=== PATIENT | female | born 1995 | race Caucasian/White ===

== ENCOUNTER 2021-06-06 05:52 | Inpatient (IN) | payer BC, SELFPAY ==
[2021-06-06] VITALS (100 sets, daily range): BP systolic 100–165; BP diastolic 52–149; PULSE 26–242; RESP 16–20; TEMP 36.2–36.7; O2SAT 80–100; BMI 31.1
--- NOTE | 2021-06-06 05:52 | LDADM ---
This patient, Mckenzie Stallings, was admitted to Labor/Delivery/Recovery 103 on 06/06/21 at 05:52. Plans for labor, pain management and were discussed with patient. Patient/family oriented to hospital policies and general routines including ID bracelet, bed and alarms, visiting hours, pain management, procedures, bathroom and other care routines, personal items, smoking policy, room service/diet and guest tray routines, infant security routines, and visiting hours. Patient/Family are encouraged to report perceived risks to care and to ask questions if they do not understand what they are told or what they should do. See OBIX for further documentation.
[2021-06-06 06:46] LABS: Basophils Percent Auto 0.2 % (0.2-1.2); Eosinophils Absolute Auto 0.1 K/mm3 (0-0.3); Eosinophils Percent Auto 0.7 % (0-4.4); Hematocrit 30.5 % (37.0-47.0); Hemoglobin 9.6 g/dL (12.0-15.0); Immature Granulocyte Absolute 0.05 K/mm3 (0.00-0.031); Immature Granulocyte Percent A 0.6 % (0-0.5); Lymphocytes Absolute Auto 2.44 K/mm3 (0.9-3.2); Lymphocytes Percent Auto 29.7 % (18.3-44.2); Mean Corpuscular HGB Conc 31.5 g/dl (32-36); Mean Corpuscular Hemoglobin 25.5 pg (26-34); Mean Corpuscular Volume 81.1 fl (80-100); Mean Platelet Volume 11.3 fl (7.4-10.4); Monocytes Absolute Auto 0.5 K/mm3 (0.1-0.6); Neutrophils Absolute Auto 5.2 K/mm3 (1.3-6.7); Neutrophils Percent Auto 62.8 % (45.5-73.1); Platelet Count Result 176 k/mm3 (150-375); Red Blood Count 3.76 M/mm3 (4.2-5.4); Red Cell Distribution Width 14.6 % (11.5-14.5); White Blood Count 8.2 K/mm3 (4.5-10.0)
[2021-06-06] MEDS: LACTATED RINGERS 1,000 ML 125 ML IV CONT ×2 (06:59→14:39)
[2021-06-06] MEDS: OXYTOCIN 30 UNITS/NS 500 ML 30 UNITS/500 ML BAG IV CONT (07:00)
--- NOTE | 2021-06-06 07:18 | WPDOBADMIT ---
Obstetrics - Admit Note Admission Note: record reviewed. No pertinent additions to the history and/or any subsequent changes in the physical findings that are not consistent with the expected course of the were found. IOL at 39 weeks, attempted arom stopped due to pt discomfort, anticipate vaginal delivery Additions to the history and/or subsequent changes in the physical findings follow. None.
--- NOTE | 2021-06-06 09:59 | P.PNAN_ITS ---
Anes - Eval Pre Procedure Procedure: labor pain management Date/Time: 06/06/21 09:59 Surgeon: Nils Preop Diagnosis: pain during labor Pre Op Diagnosis: Induction of Labor Patient Data Age: 26 Gender: F Height: 1.57 m Weight: 77.2 kg Last Vital Signs Temp 98.1 F 06/06/21 09:02 Pulse 78 06/06/21 09:01 Resp 18 06/06/21 09:02 BP 121/64 06/06/21 09:01 Allergies Allergy/AdvReac Type Severity Reaction Status Date / Time Penicillins Allergy Severe HIVES Verified 02/23/19 07:23 Home Medications Medication Instructions Recorded Confirmed Type PNV cmb#95-ferrous fumarate-FA 1 tablet PO DAILY 05/21/21 06/06/21 History [] pantoprazole [Protonix] 20 mg PO HS 05/21/21 06/06/21 History Laboratory Tests 06/06/21 06/06/21 06:33 06:33 WBC 8.2 K/mm3 K/mm3 (4.5-10.0) RBC 3.76 M/mm3 L M/mm3 (4.2-5.4) Hgb 9.6 g/dL L g/dL (12.0-15.0) Hct 30.5 % L % (37.0-47.0) MCV 81.1 fl fl (80-100) MCH 25.5 pg L pg (26-34) MCHC 31.5 g/dl L g/dl (32-36) RDW 14.6 % H % (11.5-14.5) Plt Count 176 k/mm3 k/mm3 (150-375) MPV 11.3 fl H fl (7.4-10.4) Immature Gran % (Auto) 0.6 % H % (0-0.5) Neut % (Auto) 62.8 % % (45.5-73.1) Lymph % (Auto) 29.7 % % (18.3-44.2) [place]go % (Auto) 6.0 % % (2.6-8.5) Eos % (Auto) 0.7 % % (0-4.4) Baso % (Auto) 0.2 % % (0.2-1.2) Lymph # (Auto) 2.44 K/mm3 K/mm3 (0.9-3.2) H[place]go # (Auto) 0.5 K/mm3 K/mm3 (0.1-0.6) Eos # (Auto) 0.1 K/mm3 K/mm3 (0-0.3) Baso # (Auto) 0.0 K/mm3 K/mm3 (0.0-0.1) Abs Immat Gran (auto) 0.05 K/mm3 H K/mm3 (0.00-0.031) Absolute Neuts (auto) 5.2 K/mm3 K/mm3 (1.3-6.7) Absolute Nucleated RBC 0.0 K/mm3 K/mm3 (0.0-0.012) Nucleated RBC % 0.0 % % (0.0-0.2) Blood Type A Positive Antibody Screen Negative : gestational age (edc 06/12/21) HCG: positive Patient hx anesthesia problems: none Family hx anesthesia problems: none Results Review: All pre-operative results and documents have been reviewed as part of the pre-operative evaluation. [facility] Past Medical History Medical History Pain during labor Family History Family History Other No pertinent family history Social History Social History Smoking status: Never smoker Substance use: never Spiritual care concerns: No Exam Day of Procedure 06/06/21 09:59
[2021-06-06] MEDS: fentaNYL CITRATE INJ (*CRX) 100 MCG/2 ML VIAL 50 MCG IV PUSH ×2 (12:26→14:01)
[2021-06-06] MEDS: ONDANSETRON INJ 4 MG/2 ML VIAL IV PUSH (16:52)
--- NOTE | 2021-06-06 18:15 | PM.OBPRVD ---
OB - Delivery Note Procedure Delivery date: 06/06/21 Procedure: vaginal delivery Intrapartal events: None Induction method: AROM and per pitocin protocol Delivery monitor: external FHT and external uterine Route of delivery: Episiotomy description: None Laceration Description: Perineal - 2nd Degree Delivery repair: vicryl Specimen: No Quantitative Blood Loss (ml): 450 Anesthesia type: Epidural Disposition: floor Baby Date of : 06/06/21 Time of : 17:56 Weeks of gestation at delivery: 39 Infant gender: Male Weight (pounds): 8 Weight (ounces): 7 presentation: vertex position: Right Occiput Anterior Placenta delivery description: Spontaneous cord vessel description: 3 Vessels, Nuchal Cord, Loose, Clamped/Cut and Delayed Cord Clamping score one minute: 9 score five minutes: 9 Narrative: mother and baby skin to skin in stable condition
[2021-06-06] MEDS: OXYTOCIN 30 UNITS/NS 500 ML 30 UNITS/500 ML BAG 125 UNITS IV CONT (18:25)
[2021-06-06] MEDS: IBUPROFEN 600 MG TABLET PO (20:39)
[2021-06-06] MEDS: WITCH HAZEL 40 PADS 1 PAD TOPICAL (20:40)
[2021-06-06] MEDS: BENZOCAINE 20% AER SPR (*SP) 56 GM CAN 1 SPRAY TOPICAL (20:40)
[2021-06-07] MEDS: ACETAMINOPHEN 325 MG TABLET 650 MG PO (00:34)
[2021-06-07 04:50] LABS: Hemoglobin 8.4 g/dL (12.0-15.0)
[2021-06-07 07:50] LABS: Rapid Plasma Reagin Non-Reactive (NonReactive)
--- NOTE | 2021-06-07 08:10 | PM.OBPNVD ---
OB - PN: Subj Subjective Date/time seen: 06/07/21 08:10 Patient comments: no complaints baby status: doing well OB - PN: Obj Data Labs CBC & Chem 7: 06/07/21 02:48 Labs: Laboratory Results - last 24 hr 06/07/21 06/07/21 02:48 02:48 Hgb 8.4 L Hct 27.0 L RPR Non-reactive OB - PN A/P Plan day: 1 Plan: routine care Time Spent With Patient Time: Total time spent is greater than 50% in coordination of care (as documented) at patient's floor/unit and/or counseling patient: Time with patient: less than 15 minutes Review of Systems Review of Systems: All systems reviewed & are unremarkable except as noted in HPI and below Exam Narrative: Fundus firm and vaginal flow controlled. No lower ext redness, warmth, or edema. Negative homans. Const: General: comfortable Chest: Breast/axilla inspection: normal inspection of the breasts Resp: Effort & Inspection: normal respiratory effort Cardio: Rate: regular rate GI: GI Palp: Yes Soft to palpation Psych: Appearance: grossly normal Affect: normal affect Attitude: cooperative Thought content: Yes Normal thought content present Judgement: Good judgement present (Psych)
[2021-06-07 08:30] VITALS: BP 102/64; PULSE 107; RESP 16; TEMP 36.5; O2SAT 99
[2021-06-07] MEDS: IBUPROFEN 600 MG TABLET PO ×2 (08:35→17:11)
[2021-06-07] MEDS: POLYSACCHARIDE IRON COMPLEX 150 MG CAPSULE PO ×2 (08:35→17:11)
[2021-06-07] MEDS: MULTIVIT/MIN/PREN/FOL AC/IRON TABLET 1 TAB PO (08:35)
[2021-06-07] MEDS: DOCUSATE SODIUM 100 MG CAPSULE PO ×2 (08:35→17:11)
--- NOTE | 2021-06-07 09:52 | WPDANLDPN2 ---
Anes-Prog Note L&D Date/Time: 06/07/21 09:52 Comfortable throughout: labor and delivery Neuraxial method: epidural Epidural/Spinal procedure site: clean & non-tender Neuro status: Neuro function grossly intact. Cardiovascular status: normal Respiratory status: normal Airway patency: baseline Mental status: baseline Post-Op hydration status: normal Vital Signs: Last Vital Signs Temp 36.4 C 06/06/21 22:25 Pulse 118 H 06/06/21 22:25 Resp 16 06/06/21 22:25 BP 117/70 06/06/21 22:25 Pulse Ox 98 06/06/21 18:00 Pain score (VAS): 0 I/O: Intake & Output 06/06/21 06/07/21 06/07/21 23:59 07:59 15:59 Intake Total 1500 Output Total 95 Balance 1405 Post-procedural complaints: none Patient feedback: Patient satisfied with anesthetic care.
[2021-06-07 11:56] VITALS: BP 109/57; PULSE 102; RESP 16; TEMP 36.8; O2SAT 98
[2021-06-07 17:00] VITALS: BP 118/72; PULSE 102; RESP 16; TEMP 36.4; O2SAT 100; O2SAT 98
[2021-06-07 18:40] VITALS: BP 114/69; PULSE 100; RESP 16; TEMP 36.8
[2021-06-08] MEDS: ACETAMINOPHEN 325 MG TABLET 650 MG PO (00:55)
[2021-06-08 07:30] VITALS: BP 128/76; PULSE 108; RESP 16; TEMP 37; O2SAT 99
--- NOTE | 2021-06-08 07:43 | PM.OBPNVD ---
OB - PN: Subj Subjective Date/time seen: 06/08/21 07:43 Patient comments: no complaints baby status: doing well OB - PN: Obj Data Labs CBC & Chem 7: 06/07/21 02:48 Labs: Laboratory Results - last 24 hr 06/07/21 02:48 RPR Non-reactive OB - PN A/P Plan day: 2 Plan: routine care and discharge home Time Spent With Patient Time: Total time spent is greater than 50% in coordination of care (as documented) at patient's floor/unit and/or counseling patient: Review of Systems Review of Systems: All systems reviewed & are unremarkable except as noted in HPI and below Exam Const: General: cooperative
--- NOTE | 2021-06-08 07:45 | PM.OBDSVD ---
DS: Admitting Diagnosis Discharge Date 06/08/2021 Admitting Diagnosis MIL OB - DS: Summary OB Procedures : None OB Procedures Intrapartum: Spontaneous Vag Delivery OB Procedures: : None Time Spent with Patient Time attestation: Total time spent providing and/or coordinating discharge services: DS: Data Data Completed and Pending Labs on day of discharge: Labs from last 24 hours 06/07/21 02:48 RPR Non-reactive Discharge Plan Discharge Attending physician on discharge: Maryan Wray Discharging Clinician: Torri Turner Patient Disposition: Home, Self-Care Activity: pelvic rest Diet: regular Patient Instructions: Antibiotic Form Stand Alone Forms: General Discharge Information Follow-up/Referrals: Torri Turner, CNM [Certified Nurse Sterilizer Operator] - 4 Weeks Discharge Medications: Continued PNV cmb#95-ferrous fumarate-FA [] 28 mg iron- 800 mcg Tablet 1 tablet PO DAILY RF: 0 Discontinued pantoprazole [Protonix] 20 mg Tablet,Delayed Release (Dr/Ec) 20 mg PO HS RF: 0 Date of admission: 06/06/21 05:52 Primary Care Provider: Eric,[place] Admitting Provider: Maryan Wray Attending physician on admission: Maryan Wray Condition: Stable
[2021-06-08] MEDS: DOCUSATE SODIUM 100 MG CAPSULE PO (09:59)
[2021-06-08] MEDS: MULTIVIT/MIN/PREN/FOL AC/IRON TABLET 1 TAB PO (09:59)
[2021-06-08] MEDS: BENZOCAINE 20% AER SPR (*SP) 56 GM CAN 1 SPRAY TOPICAL (09:59)
[2021-06-08] MEDS: WITCH HAZEL 40 PADS 1 PAD TOPICAL (09:59)
[2021-06-08] MEDS: IBUPROFEN 600 MG TABLET PO (09:59)
[2021-06-08] MEDS: POLYSACCHARIDE IRON COMPLEX 150 MG CAPSULE PO (09:59)
[2021-06-08 10:00] VITALS: PULSE 108; RESP 16; O2SAT 99
--- NOTE | 2021-06-08 10:38 | PC.NURSE ---
Mother verbalizes she is able to independently latch with appropriate positioning/alignment. She states she has nipple discomfort, is feeding as required and waking infant to feed if needed. Discussed making sure infant has deep latch and what that looks like and mother given lanolin. Encouraged mom to leave breast open to air when able. Mom denies and cracks, blisters or bleeding on nipples. has had 9 effective feedings in the past 24 hours, and is currently meeting outcomes for weight, output, jaundice and feeding frequencies. Mother states she feels confident to continue effective at home. Reviewed transition to breast milk, signs of adequate intake, and engorgement/relief. Mom states she was able to pump one ounce of milk for while was getting circumcision. Instructed to call ICP if intake/output less than required. Reviewed community resources on the [facility] website and in the Mom/Baby guide. Information on outpatient services provided. Mother has no further questions at this time. Encouraged mom to call with next feeding to have it assessed.
[2021-06-09 11:25] VITALS: BP 119/73; PULSE 96; RESP 20; TEMP 36.6; O2SAT 100
== END 2021-06-08 11:55 | disposition home or self-care (01) | DRG 807 ==
LOC: ANHLDR 05:56 → ANHOB2 21:55
PROVIDERS: Advanced Practice Midwife; Admitting Provider Obstetrics & Gynecology; PCP Surgery; Visit Provider Obstetrics & Gynecology
DX: O76 Abnormality in fetal heart rate and rhythm complicating labor and delivery (principal); Z37.0 Single live birth; O69.81X0 Labor and delivery complicated by cord around neck, without compression, not applicable or unspecified; O70.1 Second degree perineal laceration during delivery; Z3A.39 39 weeks gestation of pregnancy
CPT/HCPCS: 36415; 85014; 85018; 85025; 86592; 86850; 86900; 86901; A9270; J2405; J2590; J3010; J7120

== ENCOUNTER 2022-11-29 14:57 | Outpatient (CLI) | payer OTHER, SELFPAY ==
[2022-11-29 15:45] VITALS: BP 126/78; PULSE 96
[2022-11-29 16:00] VITALS: BP 125/67; PULSE 88
[2022-11-29 16:08] LABS: Appearance Urine Cloudy (Clear); Bacteria Urine 2+ /hpf; Basophils Percent Auto 0.2 % (0.2-1.2); Bilirubin Urine Negative (Negative); Blood Urine Negative (Negative); Color Urine Yellow (Yellow); Eosinophils Absolute Auto 0.1 K/mm3 (0-0.3); Eosinophils Percent Auto 1.1 % (0-4.4); Glucose Urine UA Negative (Negative); Hematocrit 34.9 % (37.0-47.0); Hemoglobin 10.9 g/dL (12.0-15.0); Immature Granulocyte Absolute 0.05 K/mm3 (0.00-0.031); Immature Granulocyte Percent A 0.6 % (0-0.5); Ketones Urine Trace mg/dL (Negative); Leukocyte Esterase Ur 3+ LEU/UL (NEGATIVE); Lymphocytes Absolute Auto 1.99 K/mm3 (0.9-3.2); Lymphocytes Percent Auto 23.4 % (18.3-44.2); Mean Corpuscular HGB Conc 31.2 g/dl (32-36); Mean Corpuscular Hemoglobin 26.6 pg (26-34); Mean Corpuscular Volume 85.1 fl (80-100); Mean Platelet Volume 11.7 fl (7.4-10.4); Monocytes Absolute Auto 0.6 K/mm3 (0.1-0.6); Monocytes Percent Auto 7.2 % (2.6-8.5); Neutrophils Absolute Auto 5.8 K/mm3 (1.3-6.7); Neutrophils Percent Auto 67.5 % (45.5-73.1); Nitrate Urine Negative (Negative); Non Pathogenic Casts 0-2; Platelet Count Result 158 k/mm3 (150-375); Protein Urine Trace mg/dL (Negative); RBC Urine 0-2 /hpf (0-2); Red Cell Distribution Width 16.7 % (11.5-14.5); Specific Grav Ur 1.022 (1.001-1.035); Squamous Epithelial Cell Urine Many /hpf (Few); Urobilinogen Urine 0.2 mg/dL (<2.0); WBC Urine 51-100 /hpf (0-3); White Blood Count 8.5 K/mm3 (4.5-10.0); pH Urine 6.5 (5.0-9.0)
[2022-11-29 16:15] VITALS: BP 130/79; PULSE 97
[2022-11-29 16:17] LABS: Alanine Aminotransferase 12 U/L (6-35); Albumin Level 3.4 g/dL (3.5-5.1); Alkaline Phosphatase 80 U/L (38-126); Anion Gap 5 mmol/L (8-16); Aspartate Amino Transferase 20 U/L (14-36); Bilirubin,Total 0.4 mg/dL (0.2-1.3); Blood Urea Nitrogen 6 mg/dL (7-17); Calcium 8.3 mg/dL (8.4-10.2); Carbon Dioxide 21 mmol/L (22-30); Chloride 109 mmol/L (98-107); Creatinine Urine 136.8 mg/dL; Estimated Glomerular Filt Rate > 60; Glucose 92 mg/dL (65-110); Potassium 3.9 mmol/L (3.4-5.0); Sodium 135 mmol/L (137-145); Total Protein Urine Random 6 mg/dL; Ur Ttl Prot Creatinine Ratio 0.04 mg/mg (0-0.20); Uric Acid 4.2 mg/dL (2.5-7.5)
[2022-11-29 16:20] LABS: Add Urine Microscopic? YES
== END 2022-11-29 16:43 | disposition home or self-care (01) ==
LOC: ANHOBOP 15:04 → ANHOBPP 15:07
PROVIDERS: Advanced Practice Midwife; PCP Family Medicine; Visit Provider Obstetrics & Gynecology
DX: O13.9 Gestational [pregnancy-induced] hypertension without significant proteinuria, unspecified trimester (principal); Z3A.00 Weeks of gestation of pregnancy not specified
CPT/HCPCS: 36415; 59025; 80053; 81001; 82570; 84156; 84550; 85025; 87086; 99199

== ENCOUNTER 2022-12-11 12:30 | Inpatient (IN) | payer OTHER, SELFPAY ==
[2022-12-11] VITALS (87 sets, daily range): BP systolic 89–150; BP diastolic 52–97; PULSE 85–143; TEMP 36.6; O2SAT 95–100; BMI 36.5
--- NOTE | 2022-12-11 12:54 | P.PNAN_ITS ---
Anes - Eval Pre Procedure Procedure: labor epidural Date/Time: 12/11/22 12:54 Preop Diagnosis: labor pain Pre Op Diagnosis: IOL Patient Data Age: 27 Gender: F Height: Weight: Allergies Allergy/AdvReac Type Severity Reaction Status Date / Time Penicillins Allergy Severe HIVES Verified 11/29/22 15:25 Home Medications Medication Instructions Recorded Confirmed Type vit no.95-ferrous 1 tablet PO DAILY 05/21/21 06/06/21 History fumarate 28 mg-folic acid 800 mcg tablet () ferrous sulfate 325 mg (65 mg 325 mg PO DAILY 11/29/22 11/29/22 History iron) tablet Patient hx anesthesia problems: none Family hx anesthesia problems: none Results Review: All pre-operative results and documents have been reviewed as part of the pre- operative evaluation. [facility] Past Medical History Medical History Pain during labor Family History Family History Mother Family history of malignant neoplasm of breast in first degree relative Other No pertinent family history Social History Social History Smoking status: Never smoker Second hand tobacco smoke exposure: No Alcohol intake: never Substance use: never Substance use type: does not use Living arrangements: with family Occupation/Education: occupation Gender identity (if verbalized by the patient): Female Spiritual care concerns: No Exam Day of Procedure 12/11/22 12:54 Patient weight: normal Heart: regular rate and rhythm Lungs: clear to auscultation and normal air movement Airway: Mallampati scale Neurological: alert and oriented
[2022-12-11 13:48] LABS: Basophils Percent Auto 0.2 % (0.2-1.2); Eosinophils Absolute Auto 0.1 K/mm3 (0-0.3); Eosinophils Percent Auto 0.6 % (0-4.4); Hematocrit 37.5 % (37.0-47.0); Hemoglobin 11.7 g/dL (12.0-15.0); Immature Granulocyte Absolute 0.05 K/mm3 (0.00-0.031); Immature Granulocyte Percent A 0.6 % (0-0.5); Lymphocytes Absolute Auto 1.57 K/mm3 (0.9-3.2); Mean Corpuscular HGB Conc 31.2 g/dl (32-36); Mean Corpuscular Hemoglobin 26.7 pg (26-34); Mean Corpuscular Volume 85.4 fl (80-100); Mean Platelet Volume 11.7 fl (7.4-10.4); Monocytes Absolute Auto 0.5 K/mm3 (0.1-0.6); Monocytes Percent Auto 6.5 % (2.6-8.5); Neutrophils Absolute Auto 6.1 K/mm3 (1.3-6.7); Neutrophils Percent Auto 73.1 % (45.5-73.1); Platelet Count Result 155 k/mm3 (150-375); Red Blood Count 4.39 M/mm3 (4.2-5.4); White Blood Count 8.3 K/mm3 (4.5-10.0)
[2022-12-11 13:58] LABS: Alanine Aminotransferase 16 U/L (6-35); Albumin Level 3.6 g/dL (3.5-5.1); Alkaline Phosphatase 101 U/L (38-126); Anion Gap 8 mmol/L (8-16); Aspartate Amino Transferase 21 U/L (14-36); Bilirubin,Total 0.4 mg/dL (0.2-1.3); Blood Urea Nitrogen 5 mg/dL (7-17); Calcium 8.9 mg/dL (8.4-10.2); Carbon Dioxide 21 mmol/L (22-30); Chloride 107 mmol/L (98-107); Estimated Glomerular Filt Rate > 60; Glucose 90 mg/dL (65-110); Potassium 3.9 mmol/L (3.4-5.0); Sodium 136 mmol/L (137-145); Uric Acid 4.6 mg/dL (2.5-7.5)
[2022-12-11 14:14] LABS: Creatinine Urine 46.4 mg/dL; Total Protein Urine Random 13 mg/dL; Ur Ttl Prot Creatinine Ratio 0.28 mg/mg (0-0.20)
[2022-12-11] MEDS: miSOPROStol 25 MCG TABLET PO (14:38)
--- NOTE | 2022-12-11 15:48 | LDADM ---
This patient, Mckenzie Stallings, was admitted to Labor/Delivery/Recovery 107 on 12/11/22 at 12:30. Plans for labor, pain management and were discussed with patient. Patient/family oriented to hospital policies and general routines including ID bracelet, bed and alarms, visiting hours, pain management, procedures, bathroom and other care routines, personal items, smoking policy, room service/diet and guest tray routines, infant security routines, and visiting hours. Patient/Family are encouraged to report perceived risks to care and to ask questions if they do not understand what they are told or what they should do. See OBIX for further documentation.
--- NOTE | 2022-12-11 17:32 | WPDOBADMIT ---
Obstetrics - Admit Note Admission Note: record reviewed. No pertinent additions to the history and/or any subsequent changes in the physical findings that are not consistent with the expected course of the were found. IOL, GHTN, diagnosed by office bp on separate occasions, 2+ bilateral edema, denies miller, visual changes, plan of care reviewed with dr. david. SVE /-2 soft, AROM large amount of clear odorless fluid, anticipate vaginal delivery Additions to the history and/or subsequent changes in the physical findings follow. None.
[2022-12-11] MEDS: OXYTOCIN 30 UNITS/NS 500 ML 30 UNITS/500 ML BAG IV CONT (19:06)
[2022-12-11] MEDS: LACTATED RINGERS 1,000 ML 125 ML IV CONT ×2 (19:06→21:55)
--- NOTE | 2022-12-11 22:15 | WPDANESEPN ---
Anes - Epidural Procedure Note Date/Time: 12/11/22 22:15 Consent: I have discussed with the patient/family/POA, the placement of an epidural catheter and the use of epidural narcotic/local anesthetic for labor analgesia and/or postoperative pain management, including associated potential risks, benefits, complications and side effects. I have discussed alternative methods of labor analgesia and/or postoperative pain management. The patient/family/POA, understand(s) and wish(es) to proceed with epidural narcotic/local anesthetic for labor analgesia and/or postoperative pain management. Time-Out: A pre-procedural Time-Out was completed immediately before starting the procedure and confirmed: Patient Identification, Site, Procedure, Patient Position and the Availability of Requisite Equipment. Clinical Indications: Labor Pain Epidural Insertion Note Patient position: sitting Skin prep: chlorhexidine and sterile drape Needle: 18g Tuohy-Schliff Catheter: 20g Unstyleted Technique: Loss of resistance. Level of insertion: L3/4 Catheter skin frank (cm): 6 Length in epidural space (cm): 11 Skin anesthesia: lidocaine 1% Test dose: 1.5% Lidocaine with 1:[id number] Epi, negative for subarachnoid Inj and negative for intravascular Inj Time of test dose: 21:58 Observations: tolerated well Complications: none
[2022-12-12] VITALS (60 sets, daily range): BP systolic 97–164; BP diastolic 49–138; PULSE 94–144; RESP 16–18; TEMP 36.6–37.6; O2SAT 97–100
[2022-12-12] MEDS: SODIUM CHLORIDE 0.9% IV 300 ML 600 ML I-UTERINE (00:22)
--- NOTE | 2022-12-12 03:11 | P.PCNOB_ITS ---
OB - Delivery Note Procedure Delivery date: 12/12/22 Procedure: Events: Gestational Hypertension Induction method: Per Misoprostol Protocol and Per Pitocin Protocol Delivery monitor: External FHT and Internal FHT Route of delivery: Episiotomy description: None Laceration Description: None Delivery repair: vicryl Specimen: No Quantitative Blood Loss (ml): 100 Anesthesia type: Epidural [place] Baby Date of : 12/12/22 Time of : 02:52 Weeks of gestation at delivery: 37 Infant gender: Male presentation: vertex position: Other (occiput posterior) Placenta delivery description: Spontaneous Cord Vessel Description: 3 Vessels score one minute: 8 score five minutes: 9 Narrative: mother and baby skin to skin in stable condition
[2022-12-12] MEDS: OXYTOCIN 30 UNITS/NS 500 ML 30 UNITS/500 ML BAG 125 UNITS IV CONT (03:25)
[2022-12-12] MEDS: WITCH HAZEL 40 PADS 1 PAD TOPICAL (06:55)
--- NOTE | 2022-12-12 11:56 | OBPPTRN ---
0712-Patient transferred to post room #288 via wheelchair. Support person present. Oriented to unit, room, information board, rooming in, admission packet and security measures. Patient verbalizes understanding.
[2022-12-12] MEDS: DOCUSATE SODIUM 100 MG CAPSULE PO (12:15)
[2022-12-12] MEDS: MULTIVIT/MIN/PREN/FOL AC/IRON TABLET 1 TAB PO (12:15)
[2022-12-12] MEDS: IBUPROFEN 600 MG TABLET PO (14:53)
[2022-12-12 15:09] LABS: Rapid Plasma Reagin Non-Reactive (NonReactive)
--- NOTE | 2022-12-12 16:59 | PC.NURSE ---
[id number] Introductions were made, then consulted with patient to assess needs related to . Mother led the conversation with her?plans to feed?her infant and the?experience so far. Mother works well with her with encouragement and education. Encouraged understanding of the benefits of skin to skin (demonstrating unwrapping and placing upright on her chest), stimulating with massage touch, changing positions to encourage wakefulness, how to watch for early feeding cues, responsive feeding, feeding on demand (aiming for 8-12 times in 24 hours, about every 2-3 hours), milk production, building/maintaining a milk supply, duration of feeding, signs of adequate intake/output and how to record on the feeding sheet. Reviewed positioning and ear, shoulder, hip alignment, supporting the breast to facilitate a deep latch, asymmetrical latch (off-center), leading with the chin with a big, open, wide gape and body close to mother. Infant is sleepy and reluctant with no latching. Mother practiced the skill of hand expression and 8mls of expressed breast milk was spoon fed to the infant allowing the infants tongue to lap it out of the spoon. Reviewed good handwashing when or touching the breast/nipples to prevent infection. Resources used to facilitate learning were used with the tool, mom and baby guide. Mother voiced understanding of skin to skin, stimulating with massage touch, responsive feedings, hand expressed colostrum, talking to to encourage if it has been 2 -2.5 hours since the start of the last , to call if does not latch, or if there is discomfort with . Resources provided for inpatient/outpatient with business card, feeding sheet and the mom/baby guide. Parents voiced understanding of information, demonstrated learning and will call if there is a request for assistance. Reported to the primary RN.
[2022-12-13] MEDS: IBUPROFEN 600 MG TABLET PO (00:13)
[2022-12-13 05:38] LABS: Hematocrit 32.4 % (37.0-47.0); Hemoglobin 10.2 g/dL (12.0-15.0)
--- NOTE | 2022-12-13 07:16 | WPDANLDPN2 ---
Anes-Prog Note L&D Date/Time: 12/13/22 07:16 Comfortable throughout: labor and delivery Neuraxial method: epidural Epidural/Spinal procedure site: clean & non-tender Neuro status: Neuro function grossly intact. Cardiovascular status: normal Respiratory status: normal Airway patency: baseline Mental status: baseline Post-Op hydration status: normal Vital Signs: Last Vital Signs Temp 36.6 C 12/12/22 20:35 Pulse 103 H 12/12/22 20:35 Resp 16 12/12/22 20:35 BP 129/77 12/12/22 20:35 Pulse Ox 99 12/12/22 16:00 O2 Del Method Room Air 12/12/22 13:00 Pain score (VAS): 1 I/O: Intake & Output 12/12/22 12/12/22 12/13/22 15:59 23:59 07:59 Intake Total 500 500 Balance 500 500 Patient feedback: Patient satisfied with anesthetic care.
[2022-12-13 08:00] VITALS: PULSE 93; RESP 16; O2SAT 100
[2022-12-13 08:40] VITALS: BP 127/87; PULSE 93; RESP 16; TEMP 36.6; O2SAT 100
--- NOTE | 2022-12-13 09:03 | PM.OBPNVD ---
OB - PN: Subj Subjective Date/time seen: 12/13/22 09:03 s/p vaginal delivery day 1, doing well, no complaints OB - PN: Obj Data Labs 12/13/22 05:15 12/11/22 13:33 Labs: Laboratory Results - last 24 hr 12/11/22 12/13/22 13:33 05:15 Hgb 10.2 L Hct 32.4 L RPR Non-reactive OB - PN A/P Plan day: 1 Plan: routine care and discharge home Time Spent With Patient Time: Total time spent is greater than 50% in coordination of care (as documented) at patient's floor/unit and/or counseling patient: Review of Systems Review of Systems: All systems reviewed & are unremarkable except as noted in HPI and below Exam Const: General: cooperative and healthy appearing Chest: Chest palpation & inspection: normal inspection of the chest Skin: General skin exam: normal color Extrem: General: normal to inspection Psych: Appearance: grossly normal
[2022-12-13] MEDS: DOCUSATE SODIUM 100 MG CAPSULE PO (09:13)
[2022-12-13] MEDS: MULTIVIT/MIN/PREN/FOL AC/IRON TABLET 1 TAB PO (09:13)
--- NOTE | 2022-12-13 09:23 | PM.OBDSVD ---
DS: Admitting Diagnosis Discharge Date 12/13/22 Admitting Diagnosis IOL, ghtn DS: Discharge Diagnosis Discharge Diagnosis (1) Vaginal delivery: Code(s): O80 - Encounter for full-term uncomplicated delivery Status: Acute OB - DS: Summary OB Procedures : None OB Procedures Intrapartum: Spontaneous Vag Delivery OB Procedures: : None Time Spent with Patient Time attestation: Total time spent providing and/or coordinating discharge services: DS: Data Data Completed and Pending Labs on day of discharge: Labs from last 24 hours 12/13/22 12/11/22 05:15 13:33 Hgb 10.2 L Hct 32.4 L RPR Non-reactive Discharge Plan Discharge Attending physician on discharge: Maryan Wray Discharging Clinician: Torri Turner Patient Disposition: Home, Self-Care Activity: pelvic rest Diet: regular Patient Instructions: Antibiotic Form Stand Alone Forms: General Discharge Information Follow-up/Referrals: Torri Turner, CNM [Certified Nurse Senior Construction Project Manager] - 4 Weeks Discharge Medications: New ibuprofen 600 mg Tablet 600 mg PO Q6H PRN (Reason: Cramping) Qty: 30 0RF Continued PNV cmb#95-ferrous fumarate-FA [] 28 mg iron- 800 mcg Tablet 1 tablet PO DAILY ferrous sulfate 325 mg (65 mg iron) Tablet 325 mg PO DAILY docusate sodium [Colace] 100 mg Capsule 100 mg PO DAILY Discontinued lansoprazole [Prevacid] 15 mg Capsule,Delayed Release(Dr/Ec) 15 mg PO DAILY Date of admission: 12/11/22 12:30 Primary Care Provider: Finesse Reyes Admitting Provider: Maryan Wray Attending physician on admission: Maryan Wray Condition: Stable
--- NOTE | 2022-12-13 10:09 | PC.NURSE ---
Patient was given the opportunity to view the discharge video Mother & Baby Care, The First Two Weeks and to ask questions. Patient declined viewing the video and has been given the mother/baby guide for home reference.
[2022-12-14 07:45] VITALS: BP 126/79; PULSE 98; RESP 20; TEMP 36.8; O2SAT 100
== END 2022-12-13 11:45 | disposition home or self-care (01) | DRG 807 ==
LOC: ANHLDR 12:34 → ANHOB2 12-12 07:22
PROVIDERS: Advanced Practice Midwife; Admitting Provider Obstetrics & Gynecology; PCP Family Medicine; Visit Provider Obstetrics & Gynecology
DX: O13.4 Gestational [pregnancy-induced] hypertension without significant proteinuria, complicating childbirth (principal); Z37.0 Single live birth; Z3A.37 37 weeks gestation of pregnancy; O70.0 First degree perineal laceration during delivery
CPT/HCPCS: 36415; 80053; 82570; 84156; 84550; 85014; 85018; 85025; 86592; 86850; 86900; 86901; A9270; J2590; J2795; J7030; J7120

== ENCOUNTER 2025-02-04 20:57 | Observation (INO) | payer OTHER, SELFPAY ==
[2025-02-04] VITALS (7 sets, daily range): BP systolic 102–114; BP diastolic 59–72; PULSE 104–117; TEMP 37.2; BMI 31.8
--- OUTSIDE RECORDS SUMMARY | 2025-02-04 21:05 | XMS_ITS | Clinical Summary ---
Author Organization [facility] Care Team Providers Care Control Clerk Name Role Phone Unavailable Primary Care Provider Unavailabl e Social History Tobacco Use Types Packs/Day Years Used Date Smoking Tobacco: Never Assessed Comments Unknown Sex and Gender Information Value Date Recorded Sex Assigned at Not on file Legal Sex Female 12:25 PM [employer]RI[employer] Gender Identity Not on file Sexual Orientation Not on file Plan of Treatment Health Maintenance Due Date Last Done Comments Hepatitis C Virus (HCV) Screening 1995 TdaP Immunization 1995 Hepatitis B Immunization (1 of 3 - 19+ 3-dose series) 2014 Pap Smear 2016 Influenza Immunization (#1) 2024 SARS-COV-2 Immunization ( season) 2024 Respiratory Syncytial Virus (RSV) Immunization (Adult) (1 - 1-dose 75+ series) 2070 Meningococcal Immunization (ACWY) Aged Out No longer eligible based on patient's age to complete this topic Pneumococcal Immunization Combined Aged Out No longer eligible based on patient's age to complete this topic Rotavirus Immunization Aged Out No lo nger eligible based on patient's age to complete this topic
--- OUTSIDE RECORDS SUMMARY | 2025-02-04 21:05 | XMS_ITS | Data Portability ---
Author Organization [facility] Address [address] [place] [address] [place] [address] Care Team Providers Care Saw Runner Name Role Phone JIN SHAY Primary Care Provider Assessment Encounter Date Assessment Date Assessment LastModified by Organization Details LastModified Time 12/29/2024 12/29/2024 Patient is __24_weeks . Discussed plan. [email or web address] Not available 12/29/2024 18:22:37 01/26/2025 01/26/2025 Patient is _28__weeks . Discussed plan. [email or web address] Not available 01/28/2025 09:32:17 Plan of Treatment Reminders Order Date Submit Date Provider Last Modified By Organization Details Last Modified Time Details Appointments U/S OB > 14 WKS 2024 04:00P M ULTRASOUND Not available Not available Not available OB ROUTINE 2024 04:30P M Torri Turner CNM Not available Not available Not available Lab None recorde d. Referral None recorde d. Procedures None recorde d. Surgeries None recorde d. Imaging US, obstetr ic, follow- up 2024 025 [email or web address], [address], [place], [address], 01/27/2025 18:29:56 US, obstetr ic, follow- up 2024 025 [email or web address], [address], [place], [address], 12/30/2024 10:19:18 US, obstetr ic, 2nd or 3rd trimest er 2024 025 [email or web address], [address], [address], [place], [address], 12/02/2024 13:12:32 Medication Orders Protoni x 40 mg tablet, delayed release [address] [id number], [address] [place], [place], [id number], 12/29/2024 18:23:11 Patient TargetsNo targets recorded. Patient InstructionsNo instructions recorded. Reason for Referral None Reported. Results Created Date Observation Date Name Description Value Unit Range Abnormal Flag Note LastModifiedBy Organization Detail LastModifiedTime 01/27/20 25 01/26/2025 HEMAT OCRIT (HCT) HCT 32.5 % (based on docume nted legal sex) 34.0-[address] [facility] (Lab) [address], [place], [address], 01/27/2025 10:47:28 01/27/20 25 01/26/2025 HEMOG LOBIN (HGB) HGB 9.9 g/dL (based on docume nted legal sex) 11.6-[address] [facility] (Lab) [address] [place], [address], 01/27/2025 10:47:29 01/27/20 25 01/26/2025 GTT - GESTA LUIS CARLOS L PEBBLES N, ACOG OB glucose, 1 hour screen 107 mg/dL 70-135 Not Available [facility] (Lab) [address] [place], [address], 01/27/2025 10:47:29 01/27/20 25 01/26/2025 HIV 1/2 ANTIG EN/AN TIBOD Y, REFLE X CONFI RMATI ON HIV antigen/anti body Nonrea ctive nonrea ctive HIV-1 antig en and HIV-1 /HIV- 2 antib odies were not detec miguel. No labor atory evide nce of HIV infec tion. Not Available [facility] (Lab) [address], [place], [address], 01/27/2025 10:47:30 01/27/20 25 01/26/2025 RPR SCREE N, REFLE X TITER /CONF IRMAT ION RPR qualitative Nonrea ctive nonrea ctive Not Available [facility] (Lab) [address], [place], [address], 01/27/2025 10:47:30 12/02/19 25 12/01/2024 US, obste tric, follo w-up No observ ation record ed. [email or web address], [place], [address], 12/02/2024 17:35:15 12/02/19 25 12/02/2024 US, obste tric, 2nd or 3rd trime ster No observ ation record ed. [email or web address] [address], [place], [address], 12/02/2024 12:14:48 12/30/19 25 12/29/2024 US, obste tric, follo w-up No observ ation record ed. [email or web address] [address], [place], [address], 12/29/2024 17:53:30 12/30/19 25 12/29/2024 US, obste tric, follo w-up No observ ation record ed. [email or web address], [place], [address], 12/30/2024 14:42:14 01/27/20 25 01/27/2025 US, obste tric, follo w-up No observ ation record ed. [email or web address] [address], [place], [address], 01/27/2025 11:31:32 01/27/20 25 01/26/2025 US, obste tric, follo w-up No observ ation record ed. [email or web address] [address], [place], [address], 02/01/2025 23:11:53 Result Notes None recorded. Problems Name Problem SNOMED Code Status Onset Date Resolution Date Notes Provider Name and Address Organization Details Recorded Time Miscarri age without complica tion 16965706 Completed 201809/27/2020 Incomple te spontane ous without complica tion;Pra ctice ID: 0001 Kat Gómez [facility] 11:06:45 Gestatio n less than 9 weeks [id number] Completed 201809/27/2020 Less than 8 weeks gestatio n of pregnanc y;Practi ce ID: 0001 [facility] 11:06:15 Missed miscarri age [id number] Completed 201809/27/2020 Missed ;Practic e ID: 0001 [facility], [facility] 11:06:47 Pregnanc y test negative 477051052 Completed 201809/27/2020 Encounte r for pregnanc y test, result negative ;Practic e ID: 0001 [facility], [facility] 11:06:55 Finding of regulari ty of menstrua l cycle Completed 201809/27/2020 Irregula r menstrua tion, unspecif ied;Prac mariluz ID: 0001 [facility], [facility] 11:06:11 Primigra adan [id number] Completed 201209/27/2020 Supervis ion of normal first pregnanc y;Record ed Elsewher e: No Locat ion: Becky dewey [facility] S ource: [facility] kaylah: N Practi ce ID: 0001 Waldo lable Time: 11:30:00 AM Kat Gómez basilia, [facility] 1 11:07:04 Postpart um care Completed 201209/27/2020 Post Followup ;Recorde d Elsewher e: No Locat ion: [facility] S ource: [facility] kaylah: N Practi ce ID: 0001 Waldo lable Time: 10:30:00 AM [facility] 1 11:06:50 Cyst of ovary [id number] Completed 201312/28/2020 Other and unspecif ied ovarian cyst;Rec orded Elsewher e: No Locat ion: [facility] S ource: [facility] kaylah: N Javiti ce ID: 0001 Waldo lable Time: 10:51:48 AM [facility] 12:51:45 Screenin g for malignan t neoplasm of cervix Completed 201309/27/2020 Screenin g for malignan t neoplasm s of the cervix;R ecorded Elsewher e: No [facility]at [facility] kaylah: N Javiti ce ID: 0001 Waldo lable Time: 09:00:00 AM Kat Gómez basilia [facility] 1 11:07:11 Reproduc tive care manageme nt Completed 201809/27/2020 Encounte r for procreat hayde manageme nt;Recor ded Elsewher e: No Locat ion: [facility] S ource: [facility] kaylah: N Javiti ce ID: 0001 Waldo lable Time: 01:30:00 PM [facility] 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 1 11:07:16 Atypical squamous cells of undeterm ined signific ance on cervical Papanico laou smear [id number] Completed 201012/28/2020 Papanico laou smear of cervix with atypical squamous cells of undeterm ined signific ance (ASC-US) ;Recorde d Elsewher e: No Locat ion: [facility]: [facility] kay[facility]: N Fany ce ID: 0001 Waldo lable Time: 03:45:00 PM [facility] 1 12:50:48 Removal of intraute rine device Completed 201709/27/2020 Encounte r for removal of intraute rine contrace ptive device;R ecorded Elsewher e: No Locat ion: [facility]: [facility] kay[facility]: N Fany ce ID: 0001 Waldo lable Time: 08:15:00 AM [facility] 1 11:07:06 Dysmenor courtney [id number] Completed 201209/27/2020 Dysmenor courtney;Rec orded Elsewher e: No Locat ion: [facility] S ource: [facility] kaylah: N Fany ce ID: 0001 Waldo lable Time: 02:00:00 PM [facility] 1 11:05:50 Pregnanc y detectio n examinat ion Completed 201809/27/2020 Encounte r for pregnanc y test, result positive ;Recorde d Elsewher e: No Locat ion: Brain maco [facility] S ource: [facility] kaylah: N Javiti ce ID: 0001 Waldo lable Time: 09:30:00 AM Kat cui, [facility] 1 11:06:53 Pregnanc y test positive [id number] Completed 201209/27/2020 Pregnanc y examinat ion or test, positive result;R ecorded Elsewher e: No Locat ion: [facility]: [facility] kay[facility]: N Javiti ce ID: 0001 Waldo lable Time: 11:30:00 AM [facility] 1 11:06:57 Finding of contents of cervix [id number] Completed 201809/27/2020 Weeks of gestatio n of pregnanc y not specifie d;Record ed Elsewher e: No Locat ion: [facility] S ource: [facility] kaylah: N Fany ce ID: 0001 Waldo lable Time: 09:15:00 AM [facility] 1 11:06:07 Family planning surveill ance Completed 201009/27/2020 Contrace ptive surveill ance, unspecif ied;Marcos rded Elsewher e: No Locat ion: [facility] S ource: [facility] kaylah: N Javiti ce ID: 0001 Waldo lable Time: 03:45:00 PM Kat cui [facility] 1 11:05:57 Speciali zed medical examinat ion Completed 201109/27/2020 Gynecolo gical Examinat ion;Marcos rded Elsewher e: No Locat ion: [facility] S ource: [facility] kaylah: N Javiti ce ID: 0001 Waldo lable Time: 11:15:00 AM Kat cui, [facility] 1 11:07:19 Amenorrh ea [id number] Completed 201209/27/2020 Absence of menstrua tion;Rec orded Elsewher e: No Locat ion: Modestakenneth amco [facility] S ource: [facility] kaylah: N Fany ce ID: 0001 Waldo lable Time: 11:30:00 AM Kat cui, [facility] 11:05:38 Female genital organ symptoms [id number] Completed 201309/27/2020 Pelvic pain;Rec orded Elsewher e: No [facility]at [facility]: [facility] kaylah: N Javiti ce ID: 0001 Waldo lable Time: 03:30:00 PM [facility] 11:06:03 Threaten ed miscarri age [id number] Completed 201209/27/2020 Threaten ed , antepart um;Recor ded Elsewher e: No Locat ion: [facility] S ource: [facility] kaylah: Y Fany ce ID: 0001 Waldo lable Time: 02:00:00 PM [facility], [facility] 11:07:21 Miscarri age [id number] Completed 201809/27/2020 Complete spontane ous w/o complica tion;Rec orded Elsewher e: No [facility]at [facility]: [facility] kaylah: N Fany ce ID: 0001 Waldo lable Time: 09:30:00 AM Kat cui [facility] [address] 11:06:[address] Concept Completed 201709/27/2020 Encntr for general adult medical exam w/o abnormal findings ;Recorde d Elsewher e: No Locat ion: [facility] S ource: [facility] kaylah: N Javiti ce ID: 0001 Waldo lable Time: 09:30:00 AM Kat Gómez null, [facility] 1 11:07:14 Ultrason ography Completed 201209/27/2020 Antenata l screenin g for malforma tion using ultrason ics;Marcos rded Elsewher e: No Locat ion: [facility] S ource: [facility] kaylah: N Javiti ce ID: 0001 Waldo lable Time: 04:30:00 PM Kat Sellerstz basilia, [facility] 1 11:07:24 Antenata l screenin g Completed 201209/27/2020 Antenata l screenin g for malforma tion using ultrason ics;Marcos rded Elsewher e: No Locat ion: [facility]: [facility] kay[facility]: N Javiti ce ID: 0001 Waldo lable Time: 04:30:00 PM Kat Gómez basilia [facility] 1 11:05:41 Congenit al malforma tion [id number] Completed 201209/27/2020 Antenata l screenin g for malforma tion using ultrason ics;Marcos rded Elsewher e: No [facility]at ion: [facility]: [facility] kaylah: N Javiti ce ID: 0001 Waldo lable Time: 04:30:00 PM Kat Sellerstz basilia [facility] 1 11:05:47 Dyspareu farzaneh [id number] Completed 201309/27/2020 Dyspareu farzaneh;Marcos rded Elsewher e: No [facility]at ion: [facility]: [facility] kaylah: N Javiti ce ID: 0001 Waldo lable Time: 10:45:00 AM Kat Gómez [facility] 1 11:05:53 Menstrua tion finding Completed 201209/27/2020 Excessiv e or frequent menstrua tion;Rec orded Elsewher e: No [facility]at [facility]: [facility] kaylah: N Practi ce ID: 0001 Waldo lable Time: 02:30:00 PM Kat cui [facility] 11:06:38 Gestatio n period, 9 weeks [id number] Completed 201809/27/2020 9 weeks gestatio n of pregnanc y;Record ed Elsewher e: No Locat ion: [facility] S ource: [facility] kaylah: N Practi ce ID: 0001 Waldo lable Time: 03:30:00 PM Kat cui, [facility] 11:06:19 Insertio n of intraute rine contrace ptive device Completed 201209/27/2020 INSERTIO N OF IUD;Marcos rded Elsewher e: No Locat ion: [facility] S ource: [facility] kaylah: N Practi ce ID: 0001 Waldo lable Time: 11:00:00 AM Kat cui [facility] 11:06:34 Complica tion related to pregnanc y Completed 201209/27/2020 Weight Insuffic ient Antepart um;Pract ice ID: 0001 [facility], [facility] 11:05:44 Prematur e labor [id number] Completed 201207/25/2021 LABOR;Pr actice ID: 0001 Kat cui, [facility] 14:26:36 Ill-defi kellee intestin al infectio n Completed 201209/27/2020 No Show Fee;Prac mariluz ID: 0001 [facility], [facility] 11:06:27 Pregnanc y [id number] Completed 202006/25/2021 Kat cui [facility] 5 16:54:34 Prematur e delivery [id number] Completed prom 33 wks - eloisa injectio ns- stopped due to side effects Monica almonte null, [facility] 1 12:38:08 Marginal insertio n of umbilica l cord 42203405 Completed growth [place] Monica almonte null, [facility] 1 12:38:08 Marginal insertio n of umbilica l cord [id number] Completed 07/25/2021 growth US Kat Gómez null, [facility] 14:26:32 Prematur e delivery 238954027 Completed 07/25/2021 prom 33 wks - eloisa injectio ns- stopped due to side effects Kat Gómez null, [facility] 1 14:26:34 Pregnanc y 93841611 Completed 202112/30/2022 Kat Gómez null, [facility] 5 16:54:34 spontane ous labor with delivery 179075606 Completed mikel shelly Traceyadrianaunruly LittleDelfino null, [facility] 3 15:30:46 Anemia 685158275 Completed 2022 mild - 10.8 - slowfe 1 tab daily Traceymeir Littleizzle null, [facility] 3 15:30:46 Pregnanc y 79510169 Active 2024 Kat Gómez null, [facility] 5 16:54:34 Past pregnanc y history of prematur e labor 093138853 Active Torri Turner, LIANNE [address], [place], [address], [place] [facility] 5 18:23:47 Past pregnanc y history of gestatio nal hyperten prashanth 104965550 Active Torri Turner, LIANNE [address], [place], [address], [facility] 5 18:24:18 Placenta circumva llata 1993454 Active 2024 32wk growth 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 5 14:38:53 Polyhydr amnios 95554191 Active 2024 Faxed referral 02/01 [facility] Debby Snider [facility] 5 13:19:37 Problem Notes None recorded. Procedures Surgical History Date Name Laterality Status Provider Name and Address Organization Details Recorded Time 5 Date of Last Pap Smear completed Kat Gómez [facility] 09/10/2024 12:56:18 9 Dilation and Curettage [facility] 04/18[facility]2020 20:17:11 Imaging Results None recorded. Procedure Notes None recorded. Medical Equipment None Reported. Allergies Allergen ID Allergen Name Allergen Category Reaction Reaction Severity Criticality Documentation Date Start Date Code Code System Note Provider Name and Address Organization Details Recorded Time 1658 Product containin g penicilli n (product) medicatio n Not available Not available Not available 04/18/2020 65782 8001 SNOMED [facility] 0 12:58:33 Medications Name Sig Start Date Stop Date Status Note LastModified by Organization Details LastModified Time clomiphen e citrate 50 mg tablet TK 1 T PO QD FOR 5 DAYS 09/27 completed Not Available Not Available Not Available metronida zole 0.75 % (37.5 mg/5 gram) vaginal gel INSERT 1 APPLICAT ORFUL VAGINALL Y EVERY DAY FOR 5 DAYS 11/05 completed Not Available Not Available Not Available ondansetr on HCl 4 mg tablet TAKE 1 TABLET BY MOUTH EVERY 4 TO 6 HOURS 09/10 completed Not Available Not Available Not Available Protonix 20 mg tablet,de layed release Take 1 tablet every day by oral route. 07/25 completed Not Available Not Available Not Available ondansetr on 8 mg disintegr ating tablet DISSOLVE 1 TABLET ON THE TONGUE EVERY 8 HOURS NEEDED 12/29 completed Not Available Not Available Not Available doxycycli ne monohydra te 100 mg capsule take 1 capsule by oral route 2 times every day for 5 days 07/21 completed Prescrib ed Elsewher e: No Locat ion: Becky [facility] odify By: [email or web address] Dewey ncoprudenceer DateTime : 07/18/20 14 03:30:00 PM Not Available Not Available Not Available cephalexi n 500 mg capsule TAKE 1 CAPSULE BY MOUTH EVERY 12 HOURS FOR 10 DAYS 05/17 completed Not Available Not Available Not Available pantopraz ole 40 mg tablet,de layed release TAKE 1 TABLET BY MOUTH EVERY DAY active Not Available Not Available No t Available misoprost ol [address] four tablets in the vagina 02/11 completed Prescrib ed Elsewher e: No [facility] By: [email or web address] Encounte r DateTime : 01/22/20 19 09:45:00 AM Not Available Not Available Not Available progester one micronize d 200 mg capsule Take 1 capsule every day by oral route at bedtime for 30 days. 11/05 completed Not Available Not Available Not Available omeprazol e 20 mg capsule,d elayed release 07/25 completed Not Available Not Available Not Available ibuprofen 600 mg tablet TAKE 1 TABLET BY MOUTH EVERY 6 HOURS NEEDED FOR CRAMPING 09/10 completed Not Available Not Available Not Available letrozole 2.5 mg tablet TAKE 1 TABLET BY MOUTH EVERY DAY FOR 5 DAYS 12/28 completed Not Available Not Available Not Available Vitamin D2 1,250 mcg (50,000 unit) capsule take 1 capsule (46253FY ITS) by oral route every week 08/26 completed Prescrib ed Elsewher e: No Locat ion: Brain maco [facility] odify By: km holden DateTime : 05/13/20 13 02:57:09 PM Not Available Not Available Not Available ondansetr on 4 mg disintegr ating tablet DISSOLVE 1 TABLET ON THE TONGUE EVERY 6 HOURS 11/05 completed Not Available Not Available Not Available Zithromax 500 mg tablet take 4 tablet by oral route once 07/21 completed Prescrib ed Elsewher e: No Locat ion: [facility] odify By: conrad barragan DateTime : 07/18/20 14 03:30:00 PM Not Available Not Available Not Available Premarin 0.625 mg/gram vaginal cream apply thin layer to area of discomfo rt at hs x 2 weeks then 3-4 x week as needed 05/17 completed Not Available Not Available Not Available Prilosec OTC 20 mg tablet,de layed release Take 1 tablet every day by oral route. 07/25 completed Not Available Not Available Not Available 07/25 completed Not Available Not Available Not Available Lysteda 650 mg tablet take 2 tablet (1300MG) by oral route 3 times every day during menses 12/15 completed Prescrib ed Elsewher e: No Locat ion: [facility] odify By: parish barragan DateTime : 11/05/19 13 02:00:00 PM Not Available Not Available Not Available Logan-Jonas uo DHA 29 mg-1 mg-400 mg oral pack take 2 by Oral route every day for 30 days 01/13 completed Prescrib ed Elsewher e: No Locat ion: [facility] odify By: parish barragan DateTime : 12/16/19 13 11:30:00 AM Not Available Not Available Not Available [place] (PF) 275 mg/1.1 mL subcutane ous auto-inje ctor Inject 1 mL by subcutan eous route. 04/07 completed Not Available Not Available Not Available ID NOW COVID-19 Test Kit TEST DIRECTED TODAY 09/10 completed Not Available Not Available Not Available Vitals Date Recorded Body weight Body mass index (BMI) Body height Systolic blood pressure Diastolic blood pressure Provider Name and Address Organization Details Last Updated DateTime 12/01/2024 28755.44 186 g 31.8 kg/m2 159.39 cm 113 mm[Hg] 74 mm[Hg] Kat Gómez [facility] 5 18:25:07 Date Recorded Body weight Body mass index (BMI) Body height Systolic blood pressure Diastolic blood pressure Provider Name and Address Organization Details Last Updated DateTime 12/29/2024 22385.58 845 g 33 kg/m2 159.39 cm 116 mm[Hg] 78 mm[Hg] Kat Gómez [facility] 5 17:59:08 Date Recorded Body height Body mass index (BMI) Body weight Systolic blood pressure Diastolic blood pressure Provider Name and Address Organization Details Last Updated DateTime 01/26/2025 159.39 cm 34.3 kg/m2 57782.74 g 119 mm[Hg] 82 mm[Hg] Kat Gómez [facility] 5 18:25:18 Social History Question Answer Notes LastModified by Organizat ion Details LastModified Time Tobacco Smoking Status Former Smoker Kat Gómez [facility] 09/06/2022 17:01:53 If You Are , What Was Your Level Of Alcohol Consumption Prior To ? Occasional Information not available 09/06/2022 Are You Blind Or Do You Have Difficulty Seeing? No [email or web address] Information not available 12/28/2020 What Is Your Level Of Caffeine Consumption? None [email or web address] Information not available 09/06/2022 How Much Tobacco Do You Chew? None [email or web address] Information not available 09/06/2022 In The 14 Days Before Symptom Onset, Have You Had Close Contact With A Laboratory-confir med COVID-19 While That Case Was Ill? No [email or web address] Information not available 12/28/2020 In The 14 Days Before Symptom Onset, Have You Had Close Contact With A Person Who Is Under Investigation For COVID-19 While That Person Was Ill? No [email or web address] Information not available 12/28/2020 Have You Been To An Area Known To Be High Risk For COVID-19? No Information not available 12/28/2020 Are You Deaf Or Do You Have Serious Difficulty Hearing? No [email or web address] Information not available 12/28/2020 What Type Of Diet Are You Following? REGULAR [email or web address] Information not available 12/28/2020 What Was The Date Of Your Most Recent Tobacco Screening? 12/29/2024 Information not available 12/29/2024 Have You Ever Been Counseled For Unhealthy Alcohol Use? No [email or web address] Information not available 09/06/2022 Do You Use Your Seat Belt Or Car Seat Routinely? Yes [email or web address] Information not available 12/28/2020 Do You Have Smoke And Carbon Monoxide Detectors In Your Home? Yes [email or web address] Information not available 12/28/2020 At What Age Did You Start Smoking Tobacco? 22 [email or web address] Information not available 09/27/2020 How Much Tobacco Do You Smoke? No [email or web address] Information not available 06/02/2020 Do You Use Sunscreen Routinely? Yes [email or web address] Information not available 12/28/2020 Has Tobacco Cessation Counseling Been Provided? No Information not available 09/06/2022 How Many Years Have You Smoked Tobacco? 1 [email or web address] Information not available 09/06/2022 Have You Used IV Drugs? No [email or web address] Information not available 09/06/2022 Do You Have Difficulty Walking Or Climbing Stairs? No [email or web address] Information not available 09/06/2022 Sex: Unknown Functional Status Question Answer Note LastModified by Organizat ion Details LastModified Time Do you use any illicit or recreational drugs? No Information not available 09/27/2020 Do you or have you ever used any other forms of tobacco or nicotine? No [email or web address] Information not available 09/06/2022 What is your level of alcohol consumption? None [email or web address] Information not available 05/17/2022 Do you or have you ever used smokeless tobacco? Never used smokeless tobacco [email or web address] Information not available 09/06/2022 Are you able to walk? YESWOREST [email or web address] Information not available 12/28/2020 Are you able to care for yourself? Yes [email or web address] Information not available 09/06/2022 Do you have difficulty dressing or bathing? No [email or web address] Information not available 09/06/2022 Do you or have you ever used e-cigarettes or vape? Former user of electronic cigarettes Information not available 09/06/2022 What is your exercise level? Occasional [email or web address] Information not available 04/18/2020 Mental Status Question Answer Note LastModified by Organization D etails LastModified Time Do you feel stressed (tense, restless, nervous, or anxious, or unable to sleep at night)? [id number] [email or web address] Information not available 12/28/2020 Family History Relationship Description Onset Age of this Age Resolved Age Notes LastModified by Organization Details LastModified Time Father Hypertensive disorder [email or web address] Not available 04/18 20:15:12 Mother Hypertensive disorder Not available 04/18 20:15:12 Mother Malignant tumor of breast [email or web address] Not available 04/18 20:15:39 Mother Hysterectomy Not av ailable 01/26/2025 17:29:03 Maternal Grandmother Asthma [email or web address] Not available 07/2020 20:15:24 Paternal Grandmother Asthma [email or web address] Not available 07/2020 20:15:24 Maternal Aunt Malignant tumor of breast [email or web address] Not available 04/18 20:15:39 Sister Tuberculosis Not av ailable 01/26/2025 17:29:03 Notes:Aunt: Cancer, breast F ather: Hypertension Half sister (M): Tuberculosis Maternal grandmother: Asthma Mother: hysterectomy, Cancer, breast, Cancer, breast, Hypertension Paternal grandmother: Asthma Sister: Tuberculosis Medical History Condition Response Allergies (Food, seasonal, environmental ) N Other Y Breast Cancer N Drug/Latex Allergies/Reactions N Blood Transfusion N Dermatologic Disorders N Lung Disease N Defects or Inherited Disease N Breast Problem N Gestational Diabetes N Hematologic disorders N Anesthesia Complications N History of STI N Deep Vein Thrombosis N Polycystic ovary syndrome N Anxiety Disorder N Autoimmune disease N Arthritis N Infertility N Polyps N Acid Reflux (GERD) Y History of abnormal pap Y Cancer N Stroke N Varicosities N Neurologic/Epilepsy N Endometriosis N High Cholesterol N Headaches N Fibromyalgia N Kidney Disease N Heart Problems N Kidney or Bladder Problems N Thyroid Problems N GI Problems N Eating Disorder N Anemia N Art (IVF or FET) N Psychiatric Illness N Ovarian Cancer N Diabetes N Pulmonary (TB, Asthma) N Hepatitis/Liver Disease N No Past Medical History N Eczema N Urinary Tract Infection N Abuse/Domestic Violence N Asthma N Trauma/Violence N Depression/ depression N Heart Disease N Pre-Eclampsia N Hypertension N Osteoporosis N Thrombophilias N Gynecological History Statement/Question Response Date of Last Mammogram Date of LMP 07/10/2024 On BCP's at Conception? N STIs/STDs N Was last menstrual period normal Y Current Control Method Age at First Child 18 Date of Last Colonoscopy Sexually Active? Y Date of DEXA bone scan Date of Last Pap Smear 09/10/2024 Sexual Problems? N LMP Approximate Obstetrics History GPAL:G 5 P 2 1 1 3 Type Value Full Term 2 Spontaneous 1 Premature 1 Living 3 Total 5 Past Encounters Encounter ID Performer Location Encounter Start Date Encounter Closed Date Diagnosis/Indication Diagnosis SNOMED-CT Code Diagnosis ICD10 Code Diagnosis Note [id number] Torri Turner [facility] [address] [place] [address] 04/18/2020 12:34:50 04/18/2020 16:52:42 [id number] [facility] [address] [place] [address] 06/02/2020 10:44:28 06/05/2020 16:15:45 Family planning surveillance 381161720 Z30.09 [id number] Torri Turner [facility] [address] [place] [address] 09/27/2020 10:52:23 09/27/2020 11:31:43 Female infertility 1773215 N97.9 [id number] Rogerio Wray MD [facility] [address] [place] [address] 10/23/2020 12:29:05 10/23/2020 13:50:51 Threatened miscarriage 49702663 O20.0 Z3A.00 [id number] Torri Turner CNM [facility] [address] [address] 10/27/2020 16:01:40 10/30/2020 11:44:46 Amenorrhea 92814106 N91.2 [id number] Rogerio Wray MD [facility] [address],[place] [address] 10/27/2020 16:00:35 10/27/2020 16:30:19 Threatened miscarriage 43025824 O20.0 Z3A.00 [id number] Rogerio Wray MD [facility] [address],[place] [address] 11/01/2020 16:54:52 11/01/2020 17:27:54 Threatened miscarriage 08342897 O20.0 Z3A.08 [id number] Rogerio Wray MD [facility] [address],[place] [address] 11/30/2020 16:29:39 11/30/2020 17:05:47 screening 347887499 Z36.82 [id number] Rogerio Wray MD [facility] [address],[place] [address] 11/30/2020 16:30:55 12/02/2020 15:26:08 Routine care 545785194 Z34.91 Recurrent miscarriage 10 0834317 N96 [id number] [facility] [address] [address] 12/28/2020 12:02:27 12/28/2020 14:33:56 Routine care 802850660 Z34.92 [id number] Rogerio Wray MD [facility] [address],[place] [address] 12/28/2020 12:01:05 12/29/2020 08:09:00 [id number] Torri Turner CNM [facility] [address],[place] [address] 01/24/2021 11:33:25 01/24/2021 13:50:02 Routine care 105234294 Z34.92 [id number] Rogerio Wray MD [facility] [address],[place] [address] 01/24/2021 11:30:13 01/24/2021 13:13:40 screening for malformation 260584230 Z36.3 [id number] Torri Turner [facility] [address] [address] 01/24/2021 19:43:42 01/25/2021 15:49:20 Past history of premature delivery 798160817 Z87.51 [id number] Torri Turner [facility] [address] [address] 02/01/2021 12:43:55 02/02/2021 15:21:13 Past history of premature delivery 936837884 Z87.51 [id number] Torri Turner [facility] [address],[place] [address] 02/07/2021 16:26:01 02/07/2021 22:30:01 Past history of premature labor 821135109 Z87.51 [id number] Rogerio Wray MD [facility] [address],[place] [address] 02/15/2021 10:42:24 02/15/2021 14:22:02 Past history of premature delivery 763228155 Z87.51 [id number] Elizabeth Mei [facility] [address],[place] [address] 02/22/2021 10:31:13 02/23/2021 15:25:02 Routine care 679402716 Z34.92 Past pregn rosa isela history of premature delivery 104495289 Z87.51 [id number] Rogerio Wray MD [facility] [address] [address] 02/22/2021 10:31:01 02/22/2021 11:07:01 Placental condition affecting management of mother 825004671 O43.102 Z3A.24 [id number] Elizabeth Mei [facility] [address],[place] [address] 02/22/2021 10:31:26 03/06/2021 20:18:09 [id number] Karla Saxena MD [facility] [address] [address] 1 03/21/2021 10:06:51 03/21/2021 11:25:27 Placental condition affecting management of mother 622322488 O43.103 Z3A.28 [id number] Karla Saxena MD [facility] [address] [address] 03/21/2021 10:07:37 03/21/2021 11:45:00 Marginal insertion of umbilical cord 64067400 O43.129 Past pregn rosa isela history of premature delivery 658430398 Z87.51 [id number] Rogerio Wray MD [facility] [address],[place] [address] 04/07/2021 09:40:40 04/07/2021 10:26:10 Routine care 572016997 Z34.91 [id number] [facility] [address] [address] 04/19/2021 10:36:06 04/19/2021 11:51:21 Routine care 687042829 Z34.92 [id number] Rogerio Wray MD [facility] [address] [address] 04/19/2021 10:35:06 04/19/2021 11:19:33 Placental condition affecting management of mother 650628757 O43.93 Z3A.32 [id number] [facility] [address] [address] 05/03/2021 11:54:05 05/03/2021 14:05:52 Routine care 546325137 Z34.92 [id number] [facility] [address] [address] 05/16/2021 15:31:46 05/16/2021 18:25:15 Routine care 798785137 Z34.92 Acid reflux 925467443 K2 1.9 [id number] Rogerio Wray MD [facility] [address] [address] 05/16/2021 15:29:15 05/16/2021 18:26:06 Placental condition affecting management of mother 737111812 O43.103 O40.3XX0 Z3A.36 [id number] [facility] [address] [address] 05/23/2021 13:56:53 05/23/2021 15:38:28 Routine care 677472863 Z34.92 [id number] Rogerio Wray MD [facility] [address] [address] 05/23/2021 13:57:28 05/23/2021 15:18:35 Polyhydramnios 54946002 O40.3XX0 [id number] [facility] [address],[place] [address] 05/29/2021 10:52:04 05/29/2021 12:37:23 Routine care 109152590 Z34.92 [id number] Rogerio Wray MD [facility] [address] [address] 05/29/2021 11:24:46 05/29/2021 12:42:55 Reduced movement 513197142 O36.8199 [id number] Torri Turner CNM [facility] [address] [address] 07/25/2021 14:19:57 07/25/2021 16:07:27 care 701885811 Z39.2 f/u sep 29 for wwe [id number] Torri Turner CNM [facility] [address],[place] [address] 09/28/2021 09:37:18 09/28/2021 10:06:09 Gynecologic examination 34812209 Z01.419 Atrophic vaginitis 39166 000 N95.2 [id number] Rogerio Wray MD [facility] [address] [address] 05/07/2022 12:30:59 05/07/2022 13:20:50 Threatened miscarriage 31466106 O20.0 Z3A.01 [id number] Rogerio Wray MD [facility] [address],[place] [address] 05/17/2022 13:27:13 05/17/2022 14:31:54 Subchorionic hematoma 265982900 O41.8X99 [id number] [facility] [address] [address] 05/17/2022 13:29:55 05/17/2022 14:30:17 test positive 328235871 Z32.01 Amenorrhea 34917594 N91. 2 [id number] Rogerio Wray MD [facility] [address] [address] 05/28/2022 12:34:09 05/28/2022 13:23:05 Threatened miscarriage 12185072 O20.0 Z3A.09 [id number] Rogerio Wray MD [facility] [address] [address] 06/19/2022 11:32:19 06/19/2022 14:23:50 screening 962093238 Z36.82 [id number] Torri Turner CNM [facility] [address] [address] 06/19/2022 11:34:06 06/19/2022 12:39:52 Routine care 332836790 Z34.92 [id number] Torri Turner [facility] [address] [address] 07/24/2022 12:30:30 07/24/2022 16:35:25 Routine care 247679566 Z34.92 [id number] Rogerio Wray MD [facility] [address] [address] 08/09/2022 15:37:02 08/12/2022 14:27:42 screening 372024529 Z36.3 [id number] Torri Turner [facility] [address],[place] [address] 08/09/2022 15:37:24 08/09/2022 17:02:17 Routine care 304332917 Z34.92 [id number] Torri Turner [facility] [address],[place] [address] 09/06/2022 15:48:29 09/07/2022 19:40:10 Routine care 901891520 Z34.92 [id number] Rogerio Wray MD [facility] [address] [address] 09/06/2022 15:49:27 09/06/2022 17:04:35 screening 423769827 Z36.2 Z3A.24 [id number] Torri Turner [facility] [address],[place] [address] 10/04/2022 09:48:26 10/04/2022 10:36:27 Routine care 640416724 Z34.92 [id number] Torri Turner [facility] [address],[place] [address] 10/18/2022 12:47:50 10/18/2022 14:06:05 Routine care 303762925 Z34.92 [id number] Rogerio Wray MD [facility] [address] [address] 11/01/2022 12:09:21 11/01/2022 12:45:45 Uterine size for dates discrepancy 155819187 O26.849 O40.9XX0 Z3A.32 [id number] [facility] [address] [address] 11/01/2022 12:10:06 11/01/2022 13:13:57 Routine care 666001290 Z34.92 [id number] Rogerio Wray MD [facility] [address] [address] 11/08/2022 12:37:18 11/08/2022 13:37:35 Polyhydramnios 39878228 O40.3XX0 Z3A.33 [id number] [facility] [address] [address] 11/15/2022 12:40:46 11/15/2022 13:45:18 Routine care 170377990 Z34.92 [id number] Rogerio Wray MD [facility] [address],[place] [address] 11/15/2022 12:41:38 11/15/2022 13:13:12 Polyhydramnios 92795596 O40.3XX0 Z3A.34 [id number] Rogerio Wray MD [facility] [address] [address] 11/22/2022 13:24:53 11/22/2022 14:26:25 Polyhydramnios 89911110 O40.3XX0 Z3A.34 [id number] [facility] [address] [address] 11/22/2022 13:26:15 11/22/2022 14:26:19 Routine care 150584460 Z34.92 [id number] [facility] [address] [address] 11/29/2022 13:37:19 11/29/2022 14:56:04 Routine care 306931927 Z34.92 [id number] Rogerio Wray MD [facility] [address],[place] [address] 11/29/2022 13:37:54 11/30/2022 11:49:23 Polyhydramnios 89287458 O40.3XX0 Z3A.34 [id number] Rogerio Wray MD [facility] [address] [address] 12/06/2022 12:36:07 12/06/2022 13:10:48 Polyhydramnios 22503115 O40.3XX0 Z3A.37 [id number] [facility] [address],[place] [address] 12/06/2022 12:37:07 12/06/2022 14:03:54 Routine care 946185157 Z34.92 [id number] Rogerio Wray MD [facility] [address],[place] [address] 12/11/2022 12:06:32 12/11/2022 12:48:43 Polyhydramnios 73765130 O40.3XX0 Z3A.37 [id number] Torri Turner [facility] [address],[place] [address] 12/11/2022 12:07:31 12/11/2022 13:14:51 Routine care 626918197 Z34.92 [id number] Torri uTrner [facility] [address],[place] [address] 01/22/2023 16:38:18 01/22/2023 17:21:48 care 070798975 Z39.2 f/u aug/sep for wwe [id number] MD Shen Crenshaw [address] [address] 09/02/2024 13:01:02 09/02/2024 13:36:04 Threatened miscarriage 12763571 O20.0 Z3A.01 [id number] Rogerio Wray MD [facility] [address],[place] [address] 09/07/2024 12:32:57 09/07/2024 12:59:31 [id number] Torri Turner [facility] [address],[place] [address] 09/10/2024 12:21:44 09/10/2024 13:16:21 Gynecologic examination 99048332 Z01.419 pap collected Nausea and vomiting 1693 1999 R11.2 [id number] Rogerio Wray MD [facility] [address],[place] [address] 10/06/2024 17:37:49 10/07/2024 10:32:42 screening 931572645 Z36.82 Z3A.12 [id number] Torri Turner [facility] [address],[place] [address] 10/08/2024 16:35:34 10/12/2024 20:12:43 Routine care 275170013 Z34.92 Bacterial vaginosis 4197 73789 N76.0 Nausea and vomiting 1691999 R11.2 [id number] Torri Turner [facility] [address],[place] [address] 11/05/2024 15:05:25 11/05/2024 15:55:34 Gestation period, 16 weeks 50111028 Z3A.16 [id number] Rogerio Wray MD [facility] [address],[place] [address] 12/01/2024 17:00:50 12/02/2024 13:12:32 screening for malformation 256327992 Z36.3 Z3A.20 [id number] Torri Turner [facility] [address],[place] [address] 12/01/2024 17:02:29 12/06/2024 10:36:35 Gestation period, 20 weeks 09355398 Z3A.20 [id number] Rogerio Wray MD [facility] [address],[place] [address] 12/29/2024 16:59:42 12/30/2024 13:15:30 anatomy study 658115106 Z36.2 O43.112 Z3A.24 [id number] Torri Turner [facility] [address],[place] [address] 12/29/2024 17:00:27 12/30/2024 07:54:14 Gastroesophageal reflux disease without esophagitis 837506740 K21.9 [id number] Rogerio Wray MD [facility] [address],[place] [address] 01/26/2025 17:27:37 01/27/2025 14:03:10 Placenta circumvallata 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 O43.113 O35.8XX0 O40.3XX0 Z3A.28 [id number] Torri Turner [facility] [address] [address] 01/26/2025 17:29:20 01/28/2025 10:45:52 Gestation period, 28 weeks 30605886 Z3A.28 Health Concerns Section Related Observation LastModified by Organization Detai ls LastModified Time None Recorded Concern Status LastModified by Organization Details LastModified Time None Recorded Advance Directives Directive None Recorded Payers Encounter Date Sequence Insurance Name Policy Number Policy Turner Covered Member ID Turner Member ID Guarantor Name 12/01/2024 1 [facility] [id number] Mckenzie Stallings [id number] Mckenzie Stallings 12/29/2024 [facility] [id number] Mckenzie Stallings [id number] Mckenzie Stallings 12/29/2024 1 [facility] [id number] Mckenzie Stallings [id number] Mckenzie Stallings 01/26/2025 [facility] [id number] Mckenzie Stallings [id number] Mckenzie Stallings 01/26/2025 [facility] [id number] Mckenzie Stallings [id number] Mckenzie Stallings OBGyn Episode Ob Episode Information Episode Created Date Number of Fetuses Patient Bloodtype Patient rh Status Prepregnancy Weight lbs Domestic Partner Domestic Partner Phone Father Name Sample Patternmaker Status 04/18/20 20 1 CLOSED Fetus Data First Name Last Name Admitted to NICU Weight (g) Sex Living Outcome Pediatric Complications Fetus ID Race Codes Race Delivery Type , Spontane ous [id number] Philip Calculation Initial Philip Date Initial Exam Date Initial Exam Provider Initial Ultrasound Date Last Menstrual Period Date Ultra Sound Weeks Gestation 0 Eighteen To Twenty Week Philip Update Ultra Sound Date Fundal Height At Umbil Quickening Date Ultra Sound Latest Weeks Gestation Final Philip Confirmed By Final Philip Confirmed Date Final Philip Date Ultra Sound Latest Days Gestation 0 0 Menstrual History Last Menstrual Date Menses Monthly On Bcp Conception Prior Menses Frequency Hcg Plus Date Menarche Onset Age Delivery Information Delivery Date Delivery Type Labor Anesthesia Weeks Gestation Incision Type Labor Labor Length Hrs Delivered By Post Complications Tubal Sterilization Discharge Date Comments 9 9 miscarria ge had to have D&C Discharge Information Feeding Method Contraceptive Method Maternal HG B and HCT Levels Ob Episode Information Episode Created Date Number of Fetuses Patient Bloodtype Patient rh Status Prepregnancy Weight lbs Domestic Partner Domestic Partner Phone Father Name Sample Patternmaker Status 04/18/20 20 1 CLOSED Fetus Data First Name Last Name Admitted to NICU Weight (g) Sex Living Outcome Pediatric Complications Fetus ID Race Codes Race Delivery Type 2296.08 2704 M Prematur e 3714 Vaginal Delivery Philip Calculation Initial Philip Date Initial Exam Date Initial Exam Provider Initial Ultrasound Date Last Menstrual Period Date Ultra Sound Weeks Gestation 0 Eighteen To Twenty Week Philip Update Ultra Sound Date Fundal Height At Umbil Quickening Date Ultra Sound Latest Weeks Gestation Final Philip Confirmed By Final Philip Confirmed Date Final Philip Date Ultra Sound Latest Days Gestation 0 0 Menstrual History Last Menstrual Date Menses Monthly On Bcp Conception Prior Menses Frequency Hcg Plus Date Menarche Onset Age Delivery Information Delivery Date Delivery Type Labor Anesthesia Weeks Gestation Incision Type Labor Labor Length Hrs Delivered By Post Complications Tubal Sterilization Discharge Date Comments 3 35 true Discharge Information Feeding Method Contraceptive Method Maternal HG B and HCT Levels Ob Episode Information Episode Created Date Number of Fetuses Patient Bloodtype Patient rh Status Prepregnancy Weight lbs Domestic Partner Domestic Partner Phone Father Name Sample Patternmaker Status 12/01/19 21 1 A Positive 161 CLOSED Fetus Data First Name Last Name Admitted to NICU Weight (g) Sex Living Outcome Pediatric Complications Fetus ID Race Codes Race Delivery Type 3827.18 25 M true Full Term terminal meconium 8650 Vaginal Delivery Problems Problem Notes Problem Name Start Date End Date Resolution Snomed Code Not e Marginal insertion of umbilical cord [id number] growth US Premature delivery [id number] p rom 33 wks - eloisa injections- stopped due to side effects Philip Calculation Initial Philip Date Initial Exam Date Initial Exam Provider Initial Ultrasound Date Last Menstrual Period Date Ultra Sound Weeks Gestation 06/12/2021 11/30/2020 10/23/2020 09/05/2020 6 Eighteen To Twenty Week Philip Update Ultra Sound Date Fundal Height At Umbil Quickening Date Ultra Sound Latest Weeks Gestation Final Philip Confirmed By Final Philip Confirmed Date Final Philip Date Ultra Sound Latest Days Gestation 0 [email or web address] 11/30/2020 06/12/20 21 0 Pre- Flowsheet Flowsheet Date 11/30/2020 Joiner Score Blood Edema Fundus Height Fundus Units Glucose Ketones Leukocytes Nitrite Labor Signs Protein Cervic Dilation Cervic Effacement Cervic Station neg none 12 trace Type Weight in lbs Pre/Post Dialysis Refused Weight 163.661228079238 BP Diastolic BP Location Tested BP Systolic BP Type 75 125 Fetus Heart Rate Present A 167 Fetus Movement A No Comments This patient is a 25-year-ol d 3 para 1011 at 12 weeks gestation presents for care. She has history of a 35 week pre term delivery and premature rupture membranes at 33 weeks. She is considering [place] shots. She is currently taking oral progesterone for prevention of miscarriage. We will continue oral progesterone to 18 weeks or discontinue with start of progesterone shots. Patient reports some nausea today. Zofran was prescribed. She will begin routine care. Flowsheet Date 12/28/2020 Joiner Score Blood Edema Fundus Height Fundus Units Glucose Ketones Leukocytes Nitrite Labor Signs Protein Cervic Dilation Cervic Effacement Cervic Station Type Weight in lbs Pre/Post Dialysis Refused BP Diastolic BP Location Tested BP Systolic BP Type Fetus Heart Rate Present Fetus Movement Comments Flowsheet Date 12/28/2020 Joiner Score Blood Edema Fundus Height Fundus Units Glucose Ketones Leukocytes Nitrite Labor Signs Protein Cervic Dilation Cervic Effacement Cervic Station neg none trace Type Weight in lbs Pre/Post Dialysis Refused Weight 162.710391572127 BP Diastolic BP Location Tested BP Systolic BP Type 89 131 Fetus Heart Rate Present Fetus Movement A Yes Comments PATIENT IS HAVING SOME CONST IPATION, DISCHARGE, AND NAUSEA, reviewed precautions, questions answered. Pt desires shelyl injection, f/u 4 week anatomy scan Flowsheet Date 01/24/2021 Joiner Score Blood Edema Fundus Height Fundus Units Glucose Ketones Leukocytes Nitrite Labor Signs Protein Cervic Dilation Cervic Effacement Cervic Station Type Weight in lbs Pre/Post Dialysis Refused BP Diastolic BP Location Tested BP Systolic BP Type Fetus Heart Rate Present Fetus Movement Comments Flowsheet Date 01/24/2021 Joiner Score Blood Edema Fundus Height Fundus Units Glucose Ketones Leukocytes Nitrite Labor Signs Protein Cervic Dilation Cervic Effacement Cervic Station neg none trace Type Weight in lbs Pre/Post Dialysis Refused Weight 168.454317831534 BP Diastolic BP Location Tested BP Systolic BP Type 69 105 Fetus Heart Rate Present Fetus Movement A Yes Comments PATIENT STATES THAT HAVING S OME LEG PAIN AND NAUSEA, reviewed precautions shelly today us complete marginal cord insertion rpt us in 4 weeks Flowsheet Date 01/24/2021 Joiner Score Blood Edema Fundus Height Fundus Units Glucose Ketones Leukocytes Nitrite Labor Signs Protein Cervic Dilation Cervic Effacement Cervic Station Type Weight in lbs Pre/Post Dialysis Refused BP Diastolic BP Location Tested BP Systolic BP Type Fetus Heart Rate Present Fetus Movement Comments Flowsheet Date 02/01/2021 Joiner Score Blood Edema Fundus Height Fundus Units Glucose Ketones Leukocytes Nitrite Labor Signs Protein Cervic Dilation Cervic Effacement Cervic Station Type Weight in lbs Pre/Post Dialysis Refused BP Diastolic BP Location Tested BP Systolic BP Type Fetus Heart Rate Present Fetus Movement Comments Flowsheet Date 02/07/2021 Joiner Score Blood Edema Fundus Height Fundus Units Glucose Ketones Leukocytes Nitrite Labor Signs Protein Cervic Dilation Cervic Effacement Cervic Station Type Weight in lbs Pre/Post Dialysis Refused BP Diastolic BP Location Tested BP Systolic BP Type Fetus Heart Rate Present Fetus Movement Comments Flowsheet Date 02/15/2021 Joiner Score Blood Edema Fundus Height Fundus Units Glucose Ketones Leukocytes Nitrite Labor Signs Protein Cervic Dilation Cervic Effacement Cervic Station Type Weight in lbs Pre/Post Dialysis Refused BP Diastolic BP Location Tested BP Systolic BP Type Fetus Heart Rate Present Fetus Movement Comments Flowsheet Date 02/22/2021 Joiner Score Blood Edema Fundus Height Fundus Units Glucose Ketones Leukocytes Nitrite Labor Signs Protein Cervic Dilation Cervic Effacement Cervic Station Type Weight in lbs Pre/Post Dialysis Refused BP Diastolic BP Location Tested BP Systolic BP Type Fetus Heart Rate Present Fetus Movement Comments Flowsheet Date 02/22/2021 Joiner Score Blood Edema Fundus Height Fundus Units Glucose Ketones Leukocytes Nitrite Labor Signs Protein Cervic Dilation Cervic Effacement Cervic Station neg none trace Type Weight in lbs Pre/Post Dialysis Refused Weight 173.734469534336 BP Diastolic BP Location Tested BP Systolic BP Type 76 113 Fetus Heart Rate Present Fetus Movement A Yes Comments patient states that having s ome nausea and acid reflux. Patient also states that having itching and raised red areas on both arms where has received shelly injection.Pt will try pepcid for acid reflux. Will go ahead shelly injection and pt will take benadryl. If any reaction she will let us know. If any s/s of severe reaction she will go to the ER. Flowsheet Date 02/22/2021 Joiner Score Blood Edema Fundus Height Fundus Units Glucose Ketones Leukocytes Nitrite Labor Signs Protein Cervic Dilation Cervic Effacement Cervic Station Type Weight in lbs Pre/Post Dialysis Refused BP Diastolic BP Location Tested BP Systolic BP Type Fetus Heart Rate Present Fetus Movement Comments Flowsheet Date 03/21/2021 Joiner Score Blood Edema Fundus Height Fundus Units Glucose Ketones Leukocytes Nitrite Labor Signs Protein Cervic Dilation Cervic Effacement Cervic Station Type Weight in lbs Pre/Post Dialysis Refused BP Diastolic BP Location Tested BP Systolic BP Type Fetus Heart Rate Present Fetus Movement Comments Flowsheet Date 03/21/2021 Joiner Score Blood Edema Fundus Height Fundus Units Glucose Ketones Leukocytes Nitrite Labor Signs Protein Cervic Dilation Cervic Effacement Cervic Station neg trace 30 trace Type Weight in lbs Pre/Post Dialysis Refused Weight 181.490194061129 BP Diastolic BP Location Tested BP Systolic BP Type 75 120 Fetus Heart Rate Present A 150 Fetus Movement A Yes Comments Doing well. Stopped Eloisa injections 1 mo ago due to side effects, feeling much better. GERD bothersome- will try pepcid. GCT today. Rh pos. Discussed and encouraged Tdap. US today normal growth and fluid, breech. Flowsheet Date 04/07/2021 Joiner Score Blood Edema Fundus Height Fundus Units Glucose Ketones Leukocytes Nitrite Labor Signs Protein Cervic Dilation Cervic Effacement Cervic Station 30 Type Weight in lbs Pre/Post Dialysis Refused Weight 183.772567161465 BP Diastolic BP Location Tested BP Systolic BP Type 70 R arm 112 sitting Fetus Heart Rate Present A 145 Fetus Movement A Yes Comments No complaints, denies foul-s melling discharge, continued GERD, recommended Prilosec, good movement Flowsheet Date 04/19/2021 Joiner Score Blood Edema Fundus Height Fundus Units Glucose Ketones Leukocytes Nitrite Labor Signs Protein Cervic Dilation Cervic Effacement Cervic Station Type Weight in lbs Pre/Post Dialysis Refused BP Diastolic BP Location Tested BP Systolic BP Type Fetus Heart Rate Present Fetus Movement Comments Flowsheet Date 04/19/2021 Joiner Score Blood Edema Fundus Height Fundus Units Glucose Ketones Leukocytes Nitrite Labor Signs Protein Cervic Dilation Cervic Effacement Cervic Station trace trace Type Weight in lbs Pre/Post Dialysis Refused Weight 186.414257826261 BP Diastolic BP Location Tested BP Systolic BP Type 72 102 Fetus Heart Rate Present Fetus Movement A Yes Comments Doing well. Occasional contr actions. TDAP today. Encouraged to schedule pre admit. Growth u/s today. Await recommendations. Flowsheet Date 05/03/2021 Joiner Score Blood Edema Fundus Height Fundus Units Glucose Ketones Leukocytes Nitrite Labor Signs Protein Cervic Dilation Cervic Effacement Cervic Station trace 35 trace Type Weight in lbs Pre/Post Dialysis Refused Weight 190.558998914427 BP Diastolic BP Location Tested BP Systolic BP Type 75 111 Fetus Heart Rate Present A 150 Fetus Movement A Yes Comments Doing well. Occasional contr actions. Encouraged to schedule pre admit. TDAP scheduled today. Was not able to go last time. Flowsheet Date 05/16/2021 Joiner Score Blood Edema Fundus Height Fundus Units Glucose Ketones Leukocytes Nitrite Labor Signs Protein Cervic Dilation Cervic Effacement Cervic Station Type Weight in lbs Pre/Post Dialysis Refused BP Diastolic BP Location Tested BP Systolic BP Type Fetus Heart Rate Present Fetus Movement Comments Flowsheet Date 05/16/2021 Jonier Score Blood Edema Fundus Height Fundus Units Glucose Ketones Leukocytes Nitrite Labor Signs Protein Cervic Dilation Cervic Effacement Cervic Station neg trace trace Type Weight in lbs Pre/Post Dialysis Refused Weight 193.63704102517 BP Diastolic BP Location Tested BP Systolic BP Type 82 127 Fetus Heart Rate Present Fetus Movement A Yes Comments patient is having numbness i n arm and hand numbness, contractions, heartburn, discharge and swelling. reviewed precautions, plans IOL at 39 weeks recheck ADE next week gbs done reviewed us with dr. frankie rowland for reflux Flowsheet Date 05/23/2021 Joiner Score Blood Edema Fundus Height Fundus Units Glucose Ketones Leukocytes Nitrite Labor Signs Protein Cervic Dilation Cervic Effacement Cervic Station neg trace trace 1cm 20% -3 Type Weight in lbs Pre/Post Dialysis Refused Weight 196.999099481084 BP Diastolic BP Location Tested BP Systolic BP Type 83 127 Fetus Heart Rate Present Fetus Movement A Yes Comments patient is having pain, issu es with carpal tunnel, swelling, and nausea. plan IOL at 39 weeks, precautions reviewed ade done today in office under 25 cm Flowsheet Date 05/23/2021 Joiner Score Blood Edema Fundus Height Fundus Units Glucose Ketones Leukocytes Nitrite Labor Signs Protein Cervic Dilation Cervic Effacement Cervic Station Type Weight in lbs Pre/Post Dialysis Refused BP Diastolic BP Location Tested BP Systolic BP Type Fetus Heart Rate Present Fetus Movement Comments Flowsheet Date 05/29/2021 Joiner Score Blood Edema Fundus Height Fundus Units Glucose Ketones Leukocytes Nitrite Labor Signs Protein Cervic Dilation Cervic Effacement Cervic Station neg trace trace 1cm 50% -3 Type Weight in lbs Pre/Post Dialysis Refused Weight 198.952999122558 BP Diastolic BP Location Tested BP Systolic BP Type 80 112 Fetus Heart Rate Present Fetus Movement A Decreased Comments patient is having decrease f etal movement, pain, contractions, and nausea. NST today reviewed kick counts, precautions IOL at 39 weeks Flowsheet Date 05/29/2021 Joiner Score Blood Edema Fundus Height Fundus Units Glucose Ketones Leukocytes Nitrite Labor Signs Protein Cervic Dilation Cervic Effacement Cervic Station Type Weight in lbs Pre/Post Dialysis Refused BP Diastolic BP Location Tested BP Systolic BP Type Fetus Heart Rate Present Fetus Movement Comments Menstrual History Last Menstrual Date Menses Monthly On Bcp Conception Prior Menses Frequency Hcg Plus Date Menarche Onset Age 1209/05/2020 Genetic Screening And Infection History Question Response Note Mental Retardation/Autism false Patient's Age Will Be 35 Years Or Older At Estim ated Date of Delivery false Thalassemia (Cypriot, Sri Lankan, Mediterranean, Or Background): MCV < 80 false Neural Tube Defect (Meningomyelocele, Spina Bifi da, Or Anencephaly) false Congenital Heart Defect false Down Syndrome false Lowell-Sachs (eg, Tenriism, Cajun, Palestinian-Burkinan) f alse Ana Rosa Disease false Sickle Cell Disease Or Trait () false Hemophilia Or Other Blood Disorders false Muscular Dystrophy false Cystic Fibrosis false Patricio's Chorea false Intellectual Disability/Autism false If Yes, Was Person Tested For Fragile X? false Other Inherited Genetic Or Chromosomal Disorder false Maternal Metabolic Disorder (eg, Type 1 Diabetes , PKU) false Patient Or Baby's Father Had A Child With Defects Not Listed Above false Recurrent Loss, Or A Stillbirth false Medications (including Suppl ements, Vitamins, Herbs, OTC Drugs), Illicit/Recreational Drugs, Alcohol false If Yes, Agent(s) And Strength/Dosage false Any Other Genetic History false Live With Someone With TB Or Exposed To TB false Patient Or Partner Has History Of Genital Herpes false Rash Or Viral Illness Since Last Menstrual Perio d false History Of STD, Gonorrhea, Chlamydia, HPV, Syphi lis false Other Infection History false History of HIV false History of Hepatitis false Prior GBS-infected child false Hemoglobinopathy Or Carrier false Other Structural Defect false Recent Travel History Outside of Country false Delivery Information Delivery Date Delivery Type Labor Anesthesia Weeks Gestation Incision Type Labor Labor Length Hrs Delivered By Post Complications Tubal Sterilization Discharge Date Comments 1 Induce d Regional-Ep idural 39.1 false Torri Turner CNM marginal cord Discharge Information Feeding Method Contraceptive Method Maternal HG B and HCT Levels Ob Episode Information Episode Created Date Number of Fetuses Patient Bloodtype Patient rh Status Prepregnancy Weight lbs Domestic Partner Domestic Partner Phone Father Name Sample Patternmaker Status 06/19/20 22 1 A Positive 162 Alejandro Haylie CLOSED Fetus Data First Name Last Name Admitted to NICU Weight (g) Sex Living Outcome Pediatric Complications Fetus ID Race Codes Race Delivery Type 3090.09 55 M true Full Term [id number] Vaginal Delivery Problems Problem Notes CF/SMA neg 2020 Problem Name Start Date End Date Resolution Snomed Code Not e Anemia 10/07/2022 MEDICATION [id number] mild - 1 0.8 - slowfe 1 tab daily spontaneous labor with delivery [id number] declines shelly Philip Calculation Initial Philip Date Initial Exam Date Initial Exam Provider Initial Ultrasound Date Last Menstrual Period Date Ultra Sound Weeks Gestation 12/17/2022 05/17/2022 05/17/2022 03/12/2022 8 Eighteen To Twenty Week Philip Update Ultra Sound Date Fundal Height At Umbil Quickening Date Ultra Sound Latest Weeks Gestation Final Philip Confirmed By Final Philip Confirmed Date Final Philip Date Ultra Sound Latest Days Gestation 0 12/28/19 23 0 Pre-aayush Flowsheet Flowsheet Date 06/19/2022 Joiner Score Blood Edema Fundus Height Fundus Units Glucose Ketones Leukocytes Nitrite Labor Signs Protein Cervic Dilation Cervic Effacement Cervic Station neg none none trace Type Weight in lbs Pre/Post Dialysis Refused Weight 158.978939039619 BP Diastolic BP Location Tested BP Systolic BP Type 88 122 Fetus Heart Rate Present Fetus Movement Comments hx of 35 week delivery in , had allergic reaction to meds in 2020 and declines shelly, hx fibroid noted at last delivery.delivered in 2020 at 39 weeks no complications, pap up to date, hx sub chorionic hem with spotting and has resolved, f/u 4 weeksNIPS negative, education done Flowsheet Date 07/24/2022 Joiner Score Blood Edema Fundus Height Fundus Units Glucose Ketones Leukocytes Nitrite Labor Signs Protein Cervic Dilation Cervic Effacement Cervic Station neg none none trace Type Weight in lbs Pre/Post Dialysis Refused Weight 160.978161731223 BP Diastolic BP Location Tested BP Systolic BP Type 73 112 Fetus Heart Rate Present Fetus Movement A Yes Comments patient is discharge, ligame nt pain, nausea and vomiting. doing well, us scheduled, precautions reviewed, Flowsheet Date 08/09/2022 Joiner Score Blood Edema Fundus Height Fundus Units Glucose Ketones Leukocytes Nitrite Labor Signs Protein Cervic Dilation Cervic Effacement Cervic Station Type Weight in lbs Pre/Post Dialysis Refused BP Diastolic BP Location Tested BP Systolic BP Type Fetus Heart Rate Present Fetus Movement Comments Flowsheet Date 08/09/2022 Joiner Score Blood Edema Fundus Height Fundus Units Glucose Ketones Leukocytes Nitrite Labor Signs Protein Cervic Dilation Cervic Effacement Cervic Station Type Weight in lbs Pre/Post Dialysis Refused BP Diastolic BP Location Tested BP Systolic BP Type Fetus Heart Rate Present Fetus Movement Comments anatomy incomplete, rpt in 4 weeks, some mild nausea, mostly gone, reviewed precautions Flowsheet Date 09/06/2022 Joiner Score Blood Edema Fundus Height Fundus Units Glucose Ketones Leukocytes Nitrite Labor Signs Protein Cervic Dilation Cervic Effacement Cervic Station neg none none trace Type Weight in lbs Pre/Post Dialysis Refused Weight 168.845210019323 BP Diastolic BP Location Tested BP Systolic BP Type 80 118 Fetus Heart Rate Present Fetus Movement A Yes Comments patient is having some heart burn, BH contractions and nausea. reviewed ptl precautions, f/u 4 weeks with GCT. vtx anatomy complete efw 60%, ok for prevacid if not working can rx protonix, going to see chiropractor for back pain Flowsheet Date 09/06/2022 Joiner Score Blood Edema Fundus Height Fundus Units Glucose Ketones Leukocytes Nitrite Labor Signs Protein Cervic Dilation Cervic Effacement Cervic Station Type Weight in lbs Pre/Post Dialysis Refused BP Diastolic BP Location Tested BP Systolic BP Type Fetus Heart Rate Present Fetus Movement Comments Flowsheet Date 10/04/2022 Joiner Score Blood Edema Fundus Height Fundus Units Glucose Ketones Leukocytes Nitrite Labor Signs Protein Cervic Dilation Cervic Effacement Cervic Station neg none 30 none trace Type Weight in lbs Pre/Post Dialysis Refused Weight 177.747961360135 BP Diastolic BP Location Tested BP Systolic BP Type 71 114 Fetus Heart Rate Present A 135 Present Fetus Movement A Yes Comments patient states that having s ome pain and contractions. reviewed PTL precautions, GCT today, order maternity support belt, rec Tdap, f/u 2 weeks Flowsheet Date 10/18/2022 Joiner Score Blood Edema Fundus Height Fundus Units Glucose Ketones Leukocytes Nitrite Labor Signs Protein Cervic Dilation Cervic Effacement Cervic Station neg trace 33 none trace Type Weight in lbs Pre/Post Dialysis Refused Weight 181.228565428511 BP Diastolic BP Location Tested BP Systolic BP Type 78 119 Fetus Heart Rate Present A 145 Fetus Movement A Yes Comments patient is having some contr actions and swelling. reviewed PTL precautions, getting tdap today, doing well f/u 2 weeks Flowsheet Date 11/01/2022 Joiner Score Blood Edema Fundus Height Fundus Units Glucose Ketones Leukocytes Nitrite Labor Signs Protein Cervic Dilation Cervic Effacement Cervic Station Type Weight in lbs Pre/Post Dialysis Refused BP Diastolic BP Location Tested BP Systolic BP Type Fetus Heart Rate Present Fetus Movement Comments Flowsheet Date 11/01/2022 Joiner Score Blood Edema Fundus Height Fundus Units Glucose Ketones Leukocytes Nitrite Labor Signs Protein Cervic Dilation Cervic Effacement Cervic Station neg trace trace Type Weight in lbs Pre/Post Dialysis Refused Weight 184.045582081793 BP Diastolic BP Location Tested BP Systolic BP Type 86 L arm 120 sitting Fetus Heart Rate Present Fetus Movement A Yes Comments Patient here c/o ctx and swe lling of legs and feet, reviewed precautions EFW 57%, polyhydramnios, mild, rpt 2 weeks, education done, plans tdap call for preadmission Flowsheet Date 11/08/2022 Joiner Score Blood Edema Fundus Height Fundus Units Glucose Ketones Leukocytes Nitrite Labor Signs Protein Cervic Dilation Cervic Effacement Cervic Station Type Weight in lbs Pre/Post Dialysis Refused BP Diastolic BP Location Tested BP Systolic BP Type Fetus Heart Rate Present Fetus Movement Comments Flowsheet Date 11/15/2022 Joiner Score Blood Edema Fundus Height Fundus Units Glucose Ketones Leukocytes Nitrite Labor Signs Protein Cervic Dilation Cervic Effacement Cervic Station Type Weight in lbs Pre/Post Dialysis Refused BP Diastolic BP Location Tested BP Systolic BP Type Fetus Heart Rate Present Fetus Movement Comments Flowsheet Date 11/15/2022 Joiner Score Blood Edema Fundus Height Fundus Units Glucose Ketones Leukocytes Nitrite Labor Signs Protein Cervic Dilation Cervic Effacement Cervic Station neg trace none trace Type Weight in lbs Pre/Post Dialysis Refused Weight 190.571395392068 BP Diastolic BP Location Tested BP Systolic BP Type 77 117 Fetus Heart Rate Present Fetus Movement A Yes Comments patient states that having c ontractions, swelling and nausea. doing well, mild poly 25.24 cm, f/u one week, plan gbs, precautions reviewed Flowsheet Date 11/22/2022 Joiner Score Blood Edema Fundus Height Fundus Units Glucose Ketones Leukocytes Nitrite Labor Signs Protein Cervic Dilation Cervic Effacement Cervic Station Type Weight in lbs Pre/Post Dialysis Refused BP Diastolic BP Location Tested BP Systolic BP Type Fetus Heart Rate Present Fetus Movement Comments Flowsheet Date 11/22/2022 Joiner Score Blood Edema Fundus Height Fundus Units Glucose Ketones Leukocytes Nitrite Labor Signs Protein Cervic Dilation Cervic Effacement Cervic Station neg trace none trace Type Weight in lbs Pre/Post Dialysis Refused Weight 192.991490852653 BP Diastolic BP Location Tested BP Systolic BP Type 80 138 Fetus Heart Rate Present Fetus Movement A Yes Comments patient is having some contr actions, pain and swelling. reviewed ade, us check hga1c f/u one week Flowsheet Date 11/29/2022 Joiner Score Blood Edema Fundus Height Fundus Units Glucose Ketones Leukocytes Nitrite Labor Signs Protein Cervic Dilation Cervic Effacement Cervic Station Type Weight in lbs Pre/Post Dialysis Refused BP Diastolic BP Location Tested BP Systolic BP Type Fetus Heart Rate Present Fetus Movement Comments Flowsheet Date 11/29/2022 Joiner Score Blood Edema Fundus Height Fundus Units Glucose Ketones Leukocytes Nitrite Labor Signs Protein Cervic Dilation Cervic Effacement Cervic Station neg none none trace 1cm 50% -2 Type Weight in lbs Pre/Post Dialysis Refused Weight 197.614736839776 BP Diastolic BP Location Tested BP Systolic BP Type 82 147 80 140 Fetus Heart Rate Present Fetus Movement A Yes Comments patient states that having s ome headaches, contractions and swelling. ADE 27 cm, denies current miller, epigastric pain, some fuzziness on periphery of computer monitors at work, miller last week resolved on its own, precautions reviewed. toLD for labs Flowsheet Date 12/06/2022 Joiner Score Blood Edema Fundus Height Fundus Units Glucose Ketones Leukocytes Nitrite Labor Signs Protein Cervic Dilation Cervic Effacement Cervic Station Type Weight in lbs Pre/Post Dialysis Refused BP Diastolic BP Location Tested BP Systolic BP Type Fetus Heart Rate Present Fetus Movement Comments Flowsheet Date 12/06/2022 Joiner Score Blood Edema Fundus Height Fundus Units Glucose Ketones Leukocytes Nitrite Labor Signs Protein Cervic Dilation Cervic Effacement Cervic Station neg none none trace 1cm 60% -2 Type Weight in lbs Pre/Post Dialysis Refused Weight 198.542219093105 BP Diastolic BP Location Tested BP Systolic BP Type 84 138 Fetus Heart Rate Present Fetus Movement A Yes Comments patient is having some pain, contractions, and swelling. ade 30. plan 39 week iol, scheduled for 12/20, precautions reviewed f/u one week Flowsheet Date 12/11/2022 Joiner Score Blood Edema Fundus Height Fundus Units Glucose Ketones Leukocytes Nitrite Labor Signs Protein Cervic Dilation Cervic Effacement Cervic Station Type Weight in lbs Pre/Post Dialysis Refused BP Diastolic BP Location Tested BP Systolic BP Type Fetus Heart Rate Present Fetus Movement Comments Flowsheet Date 12/11/2022 Joiner Score Blood Edema Fundus Height Fundus Units Glucose Ketones Leukocytes Nitrite Labor Signs Protein Cervic Dilation Cervic Effacement Cervic Station neg trace none trace 1cm 50% -2 Type Weight in lbs Pre/Post Dialysis Refused Weight 199.942535052634 BP Diastolic BP Location Tested BP Systolic BP Type 81 149 84 148 Fetus Heart Rate Present Fetus Movement A Yes Comments patient states that having s ome swelling. ade 36.9 efw 7lb 12 oz, denies headache, vision changes, precautions reviewed to LD for labs Menstrual History Last Menstrual Date Menses Monthly On Bcp Conception Prior Menses Frequency Hcg Plus Date Menarche Onset Age 0703/12/2022 Genetic Screening And Infection History Question Response Note Mental Retardation/Autism false Patient's Age Will Be 35 Yea rs Or Older At Estimated Date of Delivery false Thalassemia (Cypriot, Sri Lankan, Mediterranean, Or Background): MCV < 80 false Neural Tube Defect (Meningom yelocele, Spina Bifida, Or Anencephaly) false Congenital Heart Defect false Down Syndrome false Lowell-Sachs (eg, Tenriism, Cajun, Palestinian-Burkinan) f alse Ana Rosa Disease false Sickle Cell Disease Or Trait () false Hemophilia Or Other Blood Disorders false Muscular Dystrophy false Cystic Fibrosis false Patricio's Chorea false Intellectual Disability/Autism false If Yes, Was Person Tested For Fragile X? false Other Inherited Genetic Or Chromosomal Disorder false Maternal Metabolic Disorder (eg, Type 1 Diabetes, PKU) false Patient Or Baby's Father Had A Child With Defects Not Listed Above false Recurrent Loss, Or A Stillbirth false Medications (including Suppl ements, Vitamins, Herbs, OTC Drugs), Illicit/Recreational Drugs, Alcohol true pnv pr og until week 12 If Yes, Agent(s) And Strength/Dosage false Any Other Genetic History false Live With Someone With TB Or Exposed To TB false Patient Or Partner Has History Of Genital Herpes false Rash Or Viral Illness Since Last Menstrual Perio d false History Of STD, Gonorrhea, Chlamydia, HPV, Syphi lis false Other Infection History false History of HIV false History of Hepatitis false Prior GBS-infected child false Hemoglobinopathy Or Carrier false Other Structural Defect false Recent Travel History Outside of Country false Delivery Information Delivery Date Delivery Type Labor Anesthesia Weeks Gestation Incision Type Labor Labor Length Hrs Delivered By Post Complications Tubal Sterilization Discharge Date Comments 3 Induce d Regional-Ep idural 37.6 false [place], Torri CNRut Anemia & GHTN Discharge Information Feeding Method Contraceptive Method Maternal HG B and HCT Levels Ob Episode Information Episode Created Date Number of Fetuses Patient Bloodtype Patient rh Status Prepregnancy Weight lbs Domestic Partner Domestic Partner Phone Father Name Sample Patternmaker Status 10/08/19 25 1 A Positive 173 Led Haylie Sr OPEN Fetus Data First Name Last Name Admitted to NICU Weight (g) Sex Living Outcome Pediatric Complications Fetus ID Race Codes Race Delivery Type [id number] Problems Problem Notes small fibroid 2cm Problem Name Start Date End Date Resolution Snomed Code Not e 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 [id number] 32wk growth us Polyhydramnios 01/28/2025 [id number] Faxe d referral 02/01 [facility] Dilatation of renal pelvis 12/30/[id number] Past history of premature labor [id number] Past history of gestational hypertension [id number] Philip Calculation Initial Philip Date Initial Exam Date Initial Exam Provider Initial Ultrasound Date Last Menstrual Period Date Ultra Sound Weeks Gestation 04/16/2025 09/07/2024 Torri Turner 09/07/2024 07/10/2024 8 Eighteen To Twenty Week Philip Update Ultra Sound Date Fundal Height At Umbil Quickening Date Ultra Sound Latest Weeks Gestation Final Philip Confirmed By Final Philip Confirmed Date Final Philip Date Ultra Sound Latest Days Gestation 0 04/16/20 25 0 Pre- Flowsheet Flowsheet Date 10/08/2024 Joiner Score Blood Edema Fundus Height Fundus Units Glucose Ketones Leukocytes Nitrite Labor Signs Protein Cervic Dilation Cervic Effacement Cervic Station none trace Type Weight in lbs Pre/Post Dialysis Refused Weight 173.681582070041 BP Diastolic BP Location Tested BP Systolic BP Type 76 124 Fetus Heart Rate Present Fetus Movement A No Comments Patient states that having b ack pain, nausea and vomiting. begin rourtine care. start bASA hx gestational HTN with last Flowsheet Date 11/05/2024 Joiner Score Blood Edema Fundus Height Fundus Units Glucose Ketones Leukocytes Nitrite Labor Signs Protein Cervic Dilation Cervic Effacement Cervic Station neg none Type Weight in lbs Pre/Post Dialysis Refused 174.81768055921 BP Diastolic BP Location Tested BP Systolic BP Type 76 117 Fetus Heart Rate Present Fetus Movement A Yes Comments Patient is having pain, naus ea and vomiting. +FM still nauseated even with zofran 8 mg, f/u 4 week anatomy, precautions and education Flowsheet Date 12/01/2024 Joiner Score Blood Edema Fundus Height Fundus Units Glucose Ketones Leukocytes Nitrite Labor Signs Protein Cervic Dilation Cervic Effacement Cervic Station Type Weight in lbs Pre/Post Dialysis Refused BP Diastolic BP Location Tested BP Systolic BP Type Fetus Heart Rate Present Fetus Movement Comments Flowsheet Date 12/01/2024 Joiner Score Blood Edema Fundus Height Fundus Units Glucose Ketones Leukocytes Nitrite Labor Signs Protein Cervic Dilation Cervic Effacement Cervic Station neg none Type Weight in lbs Pre/Post Dialysis Refused 178.448435178859 BP Diastolic BP Location Tested BP Systolic BP Type 74 113 Fetus Heart Rate Present Fetus Movement A Yes Comments Patient is having some back pain, swelling, nausea and vomiting. anatomy complete, +FM, doing well, precautions an education rpt in 4 weeks Flowsheet Date 12/29/2024 Joiner Score Blood Edema Fundus Height Fundus Units Glucose Ketones Leukocytes Nitrite Labor Signs Protein Cervic Dilation Cervic Effacement Cervic Station Type Weight in lbs Pre/Post Dialysis Refused BP Diastolic BP Location Tested BP Systolic BP Type Fetus Heart Rate Present Fetus Movement Comments Flowsheet Date 12/29/2024 Joiner Score Blood Edema Fundus Height Fundus Units Glucose Ketones Leukocytes Nitrite Labor Signs Protein Cervic Dilation Cervic Effacement Cervic Station neg none Type Weight in lbs Pre/Post Dialysis Refused 185.469535270470 BP Diastolic BP Location Tested BP Systolic BP Type 78 116 Fetus Heart Rate Present Fetus Movement A Yes Comments Patient is having BH contrac tions, back pain, nausea and vomiting. reviewed US, will f/u in 4 weeks, +FM heart burn not helped by otc meds will send rx f/u here in 4 weeks with gct Flowsheet Date 01/26/2025 Joiner Score Blood Edema Fundus Height Fundus Units Glucose Ketones Leukocytes Nitrite Labor Signs Protein Cervic Dilation Cervic Effacement Cervic Station Type Weight in lbs Pre/Post Dialysis Refused BP Diastolic BP Location Tested BP Systolic BP Type Fetus Heart Rate Present Fetus Movement Comments Flowsheet Date 01/26/2025 Joiner Score Blood Edema Fundus Height Fundus Units Glucose Ketones Leukocytes Nitrite Labor Signs Protein Cervic Dilation Cervic Effacement Cervic Station neg trace Type Weight in lbs Pre/Post Dialysis Refused Weight 192.089614153043 BP Diastolic BP Location Tested BP Systolic BP Type 82 119 Fetus Heart Rate Present Fetus Movement A Yes Comments Patient is having back pain, pressure, contraction, swelling and nausea. reviewed polyhydramnios, gct today, plan mfm , start antental testing f/u 2 weeks Menstrual History Last Menstrual Date Menses Monthly On Bcp Conception Prior Menses Frequency Hcg Plus Date Menarche Onset Age 1107/10/2024 Delivery Information Delivery Date Delivery Type Labor Anesthesia Weeks Gestation Incision Type Labor Labor Length Hrs Delivered By Post Complications Tubal Sterilization Discharge Date Comments Discharge Information Feeding Method Contraceptive Method Maternal HG B and HCT Levels
--- OUTSIDE RECORDS SUMMARY | 2025-02-04 21:05 | XMS_ITS | Clinical Summary ---
Author Organization [facility] [employer] Address [address] [place] [address] Care Team Providers Care Rust Proofer Name Role Phone Unavailable Primary Care Provider Unavailabl e Source Comments [facility],non-owned Affiliates and Associated Physician Practices is amultiple site organization consisting of ambulatory clinics and hospital sitesin [place], [place], [place] and [place]. This disclosure is being madepursuant to the Care Everywhere program and may not contain all information available regarding this patient. Last updated 18.[facility] [employer] Allergies Active Allergy Reactions Criticality Noted Date Comments Penicillins Rash Low 06/11/2013 Tolerated amoxicillin without issue. Medications * Be aware that medications may not be up to date on this document. Alwaysverify current medications with the patient. Vit-Fe Fumarate-FA ( VITAMIN) 28-0.8 MG tabletIndicatio ns: Take 1 Tab by mouth once daily. Indications: Active ferrous sulfate 325 (65 FE) MG tablet Take 325 mg by mouth once daily. Active vitamin D, ergocalciferol, (DRISDOL) 51942 UNITS capsule Take 50,000 Units by mouth every 7 days. Active ibuprofen (MOTRIN) 600 MG tablet Take 1 Tab by mouth every 6 hours as needed for Pain. 60 Tab 3 3 Active docusate sodium (COLACE) 100 MG capsule Take 1 Cap by mouth 2 times daily. 60 Cap 3 3 Active Active Problems Problem Noted Date Diagnosed Date premature rupture of membranes 3 Teen 06/11/2013 Supervision of high-risk 06/11/2013 Overview (06/11/2013): A+/I/-/- HIV NR GCT nml per patient Dating per L=undoc 1st tri u/s Request records from Dr. Dior PPROM study 06/11/2013 Overview (06/21/2013): Cervical Length In PPROM Lie In PPROM Bjorn Kelley 06/11/2013 BSUS: PPROM 32w6d 33w0d 33w3d 34w0d 34w3d Presentation Breech Breech Cephalic Cephalic ADE(cm) 7.7 2.05 4.1 2.32 MVP(cm) 2.05 1.57 CL(cm) 4.48 4.43 3.5 cm 3.66 EFW(gm) 2154 AC(cm) 29.59 S:D 2.42 2.52 MCA Placenta Posterior Waist circumference(cm) Waist size 4-6 Shoe size 6 Farideh Bourne MD Abnormal maternal serum screening test 3 Overview (04/27/2013): Sequential screen for ONTD 1:42 , 2.30 MoM MSAFP Estimated Date of Delivery Comme nts Yes 04/16/2025 Based on last me nstrual period of 07/10/2024 Resolved Problems Problem Noted Date Diagnosed Date Resolved Date Family history of open neural tube defect 04/22/2013 04/22/2013 Immunizations Immunization Administration Dates Next Due INFLUENZA VACCINE 06/12/2013 TDAP (7yrs+) 06/26/2013 Social History Tobacco Use Types Packs/Day Years Used Date Smoking Tobacco: Former Cigarettes Smokeless Tobacco: Never Alcohol Use Standard Drinks/Week Comments No 0 (1 standard drink = 0.6 oz pur e alcohol) Estimated Date of Delivery Comme nts Yes 04/16/2025 Based on last me nstrual period of 07/10/2024 Sex and Gender Information Value Date Recorded Sex Assigned at Not on file Legal Sex Female 10:30 AM CDT Gender Identity Not on file Sexual Orientation Not on file Last Filed Vital Signs Vital Sign Reading Time Taken Comments Blood Pressure 124/85 06/26/2013 4:30 PM CDT Pulse 113 06/26/2013 4:30 PM CDT Temperature 36.8 C (98.2 F) 06/26/2013 4:30 PM CDT Respiratory Rate 16 06/26/2013 4:30 PM CDT Oxygen Saturation 100% 06/23/2013 3:10 PM CDT Inhaled Oxygen Concentration - - Weight 77.3 kg (170 lb 8 oz) 06/13/2013 9:40 AM CDT Height 157.5 cm (5' 2) 06/13/2013 9:40 AM CDT Body Mass Index 31.18 06/13/2013 9:40 AM CDT Plan of Treatment Upcoming Encounters Date Type Department Care Team (Late st Contact Info) Description 02/08/2025 8:15 AM CDT Hospital Encounter Formerly [facility] [address] [place] [phone] 02/08/2025 9:45 AM CDT Appointment [facility]ly [facility] [address] [place] [phone] Health Maintenance Due Date Last Done Comments PAP SMEAR 1995 HIV SCREENING 2010 HEPATITIS C SCREENING 05/04/2013 HEPATITIS B VACCINE (1 of 3 - 19+ 3-dose series) 2014 DTAP/TDAP/TD VACCINES (2 - T d or Tdap) 06/26/2023 06/26/2013 COVID-19 VACCINE (1 - 2023-2 5 season) 2024 DEPRESSION SCREENING 09/08/2024 OB-ONE HOUR GLUCOSE 01/08/2025 OB-TDAP CURRENT 01/15/2025 06/26/2013 OB-GROUP B STREP SCREEN 03/12/2025 06/11/2013 ZOSTER VACCINE (1 of 2) 2045 INFLUENZA VACCINE Completed 10/11/2024, 06/12/2013 HIB VACCINE Aged Out No longer eligi ble based on patient's age to complete this topic HPV VACCINE Aged Out No longer eligi ble based on patient's age to complete this topic MENINGOCOCCAL (Group B) VACCINE SHARED DECISION-MAKING Aged Out No longer eligible based on patient's age to complete this topic MENINGOCOCCAL GROUPS A/C/Y/W VACCINE Aged Out No longer eligible b ased on patient's age to complete this topic PNEUMOCOCCAL VACCINE Aged Out No long er eligible based on patient's age to complete this topic Respiratory Syncytial Virus (RSV) Vaccine Pt: or over 60 yrs (No Doses Required) Completed Procedures Procedure Name Priority Date/Time Associated Diagnosis Comments CULTURE STREP B STAT 06/11/2013 4:29 AM CDT from Last 3 Months or Most Recently Relevant to Health Maintenance Results * CULTURE STREP B (06/11/2013 4:29 AM CDT) Culture Negative for Beta Hemolytic Streptococcus Group B 06/14/2013 12:36 PM CDT [facility] Microbiology PART OF UTERINE CERVIX / Unknown 06/11/2013 4:29 AM CDT 06/11/2013 4:47 AM CDT us Asher Allred MD LAB - MICROBIOLOGY ORDERABLE S Final Result [facility] [address] [place], [place] [address], [place] from Last 3 Months or Most Recently Relevant to Health Maintenance Insurance ANTHEM ANTHEM Advance Directives * FULL RESUSCITATION (Latest Code Status on File) Date Activated Date Inactivated Comments 06/23/2013 7:29 PM 06/26/2013 9:25 PM * FULL RESUSCITATION Date Activated Date Inactivated Comments 06/11/2013 4:04 AM 06/23/2013 7:29 PM
[2025-02-04 21:59] LABS: Add Urine Microscopic? YES; Appearance Urine Clear (Clear); Bacteria Urine 1+ /hpf; Bilirubin Urine Negative (Negative); Blood Urine Negative (Negative); Color Urine Yellow (Yellow); Glucose Urine UA Negative (Negative); Ketones Urine 1+ mg/dL (Negative); Leukocyte Esterase Ur 3+ LEU/UL (Negative); Nitrate Urine Negative (Negative); Non Pathogenic Casts 0-2; Protein Urine Negative (Negative); RBC Urine 0-2 /hpf (0-2); Specific Grav Ur 1.009 (1.001-1.035); Squamous Epithelial Cell Urine Few /hpf (Few); Urobilinogen Urine 0.2 mg/dL (<2.0); WBC Urine 21-50 /hpf (0-3)
--- NOTE | 2025-02-04 23:05 | OBADM ---
This patient, Mckenzie Stallings, admitted to the OB room OB Post 117 for observation. Patient/family oriented to hospital policies and general routines including ID bracelet, bed and alarms, visiting hours, pain management, procedures, bathroom and other care routines, personal items, smoking policy, room service/diet, and visiting hours. Patient/Family are encouraged to report perceived risks to care and to ask questions if they do not understand what they are told or what they should do.
[2025-02-04] MEDS: NITROFURANTOIN MONOHYD MACROCR 100 MG CAP PO (23:22)
--- NOTE | 2025-02-25 09:38 | P.PNOB_ITS ---
OB - Triage/Final Diagnosis Visit Information Comments/Additional reasons for admission: I have assessed the risk for this patient, Mckenzie Stallings, and determined that she would benefit from observation care. Evaluation Laboratory results: Laboratory Tests 02/04/25 21:13 Urine Color Yellow Urine Appearance Clear Urine pH 7.0 Ur Specific [place] 1.009 Urine Protein Negative Urine Glucose (UA) Negative Urine Ketones 1+ H Ur Blood (Man) Negative Urine Nitrate Negative Urine Bilirubin Negative Urine Urobilinogen 0.2 Leukocyte Esterase Rfl 3+ H Urine RBC 0-2 Urine WBC 21-50 H Ur Squamous Epith Cells Few Urine Bacteria 1+ H Urine Casts 0-2 Final Diagnosis (1) Abdominal pain: Code(s): R10.9 - Unspecified abdominal pain Status: Acute
== END 2025-02-04 23:25 | disposition home or self-care (01) ==
PROVIDERS: Admitting Provider Obstetrics & Gynecology; PCP Family Medicine; Referring Provider Advanced Practice Midwife; Visit Provider Obstetrics & Gynecology
DX: O26.893 Other specified pregnancy related conditions, third trimester (principal); R10.9 Unspecified abdominal pain; Z3A.29 29 weeks gestation of pregnancy
CPT/HCPCS: 81001; 87086; A9270; G0378; G0379

== ENCOUNTER 2025-03-01 12:22 | Observation (INO) | payer OTHER, SELFPAY ==
[2025-03-01] VITALS (34 sets, daily range): BP systolic 108–115; BP diastolic 63–72; PULSE 89–108; RESP 18; TEMP 36.5; O2SAT 95–100; BMI 36.6
--- NOTE | 2025-03-01 12:46 | OBADM ---
This patient, Mckenzie Stallings, admitted to the OB room 116 for observation. Patient/family oriented to hospital policies and general routines including ID bracelet, bed and alarms, visiting hours, pain management, procedures, bathroom and other care routines, personal items, smoking policy, room service/diet, and visiting hours. Patient/Family are encouraged to report perceived risks to care and to ask questions if they do not understand what they are told or what they should do.
--- NOTE | 2025-03-04 12:37 | PM.OBTRLD ---
OB - Triage/Final Diagnosis Visit Information Comments/Additional reasons for admission: I have assessed the risk for this patient, Mckenzie Stallings, and determined that she would benefit from observation care. Final Diagnosis (1) Non-reactive NST (non-stress test): Code(s): O28.8 - Other abnormal findings on screening of mother Status: Acute
== END 2025-03-01 15:16 | disposition home or self-care (01) ==
PROVIDERS: Admitting Provider Obstetrics & Gynecology; PCP Family Medicine; Visit Provider Obstetrics & Gynecology
DX: O28.8 Other abnormal findings on antenatal screening of mother (principal); Z3A.33 33 weeks gestation of pregnancy
CPT/HCPCS: G0378; G0379

== ENCOUNTER 2025-04-11 05:57 | Inpatient (IN) | payer OTHER, SELFPAY ==
[2025-04-11] VITALS (93 sets, daily range): BP systolic 94–150; BP diastolic 54–96; PULSE 31–286; RESP 16–18; TEMP 36.6–37; O2SAT 94–100
--- OUTSIDE RECORDS SUMMARY | 2025-04-11 06:00 | XMS_ITS | Clinical Summary ---
Author Organization [facility] Care Team Providers Care Bottom Filler Name Role Phone Unavailable Primary Care Provider Unavailabl e Social History Tobacco Use Types Packs/Day Years Used Date Smoking Tobacco: Never Assessed Comments Unknown Sex and Gender Information Value Date Recorded Sex Assigned at Not on file Legal Sex Female 12:25 PM [employer] Gender Identity Not on file Sexual Orientation Not on file Plan of Treatment Health Maintenance Due Date Last Done Comments Hepatitis C Virus (HCV) Screening 1995 TdaP Immunization 1995 Human Papillomavirus (HPV) Immunization (1 - 3-dose series) 2010 Hepatitis B Immunization (1 of 3 - 19+ 3-dose series) 2014 SARS-COV-2 Immunization ( season) 2024 Influenza Immunization (#1) 2025 Respiratory Syncytial Virus (RSV) Immunization (Adult) (1 [...]
--- OUTSIDE RECORDS SUMMARY | 2025-04-11 06:01 | XMS_ITS | Clinical Summary ---
Author Organization [facility] Address [address] [place] [address] Care Team Providers Care Senior Administrative Associate Name Role Phone Unavailable Primary Care Provider Unavailabl e Source Comments [facility],non-owned Affiliates and Associated Physician Practices is amultiple site organization consisting of ambulatory clinics and hospital sitesin [place], [place], [place] and [place]. This disclosure is being madepursuant to the Care Everywhere program and may not contain all information available regarding this patient. Last updated 18.[facility] Allergies Active Allergy Reactions Criticality Noted Date Comments Penicillins Rash Low 06/11/2013 Tolerated amoxicillin without issue. Medications * Be aware that medications may not be up to date on this document. Alwaysverify current medications with the patient. Vit-Fe Fumarate-FA ( VITAMIN) 28-0.8 MG tabletIndicatio ns: Take 1 (one) tablet by mouth once daily Reasons: Active ferrous sulfate 325 (65 FE) MG tablet Take 1 (one) tablet by mouth once daily Active docusate sodium (COLACE) 100 MG capsule Take 1 Cap by mouth 2 times daily. 60 Cap 3 3 Active nitrofurantoin monohyd macro crystals (Macrobid) 100 MG capsule Take 1 (one) capsule by mouth 2 times daily Active aspirin (Aspirin) 81 MG chew tablet Take 1 (one) tablet by mouth at bedtime (chew and swallow) Active Active Problems Patient Care Coordination No te Formatting of this note migh t be different from the original. Please see care plan in problem list. Problem Noted Date Diagnosed Date Depression screen 03/14/2025 Overview (03/14/2025): 03/14/2025 Mckenzie Stallings was screened for depression using the Brighton Depression Scale (EPDS) at her [facility] initial evaluation on 03/14/2025. Her initial score at baseline was 0. Based off of her score of 0, Mckenzie does not warrant follow up. Patient will continue to be screened throughout , at intervals no closer than two weeks, for continued surveillance and early identification of depression until delivery. Patient reports mental health history. Diagnoses include depression and anxiety. [facility]: abnormality in (HCC) - UTD 03/10/2025 Overview (03/16/2025): Images from the original note were not included. [facility] PATIENT--PLEASE CALL [phone] (ex 2) IF TRIAGED OR ADMITTED Care Provider: Torri Turner CNM ([facility]) [facility] consultants involved: GREGORY-Maikol; Urology-Ashlee Ferrara; Nurse Navigator- Pascual Diagnosis: UTD, A2-3 Planned surveillance: Initial appointment at [facility] on 03.14.2025 Delivery location: [place] Delivery mode: per usual obstetric indications Desired Delivery GA: follow up: Unilateral UTD A2-A3 in the presence of a normal contralateral kidney Ok to deliver at hospital of parents' choosing Monitor urine output during hospital stay Monitor blood pressure during hospital stay 48 hours of life obtain lytes and creatinine - if unable to be completed at the delivery hospital can be coordinated to be completed at at their visit. Start prophylactic Amoxicillin 15-20 mg/kg PO daily Parent to schedule a renal ultrasound & follow up appointment at greater than 48 hours after but less than 1 month of life by calling Kyleigh Moreno, Urology clinical nurse, at [phone] Ok to circumcise male with normal urethral meatus Business Department Chair: Dr. Dereck Bateman- [place], [place] Agricultural Produce Commission Agent Concerns: 03/14/2025- Pt experienced some PPD and some PPA after her second child advocate plan based on evaluation and is subject to change based on assessment. See Images or Cardiac under Chart Review for US/ ECHO/ MRI reports. premature rupture of membranes 3 Supervision of high-risk 06/11/2013 Overview (06/11/2013): A+/I/-/- HIV NR GCT nml per patient Dating per L=undoc 1st tri u/s Request records from Dr. Dior Abnormal maternal serum screening test 3 Overview (04/27/2013): Sequential screen for ONTD 1:42 , 2.30 MoM MSAFP Estimated Date of Delivery Comme nts Yes 04/16/2025 Based on last me nstrual period of 07/10/2024 Resolved Problems Problem Noted Date Diagnosed Date Resolved Date Teen 06/11/2013 03/07/2025 PPROM study 06/11/2013 03/07/2025 Overview (06/21/2013): Cervical Length In PPROM Lie In PPROM Mckenzie Kelley 06/11/2013 BSUS: PPROM 32w6d 33w0d 33w3d 34w0d 34w3d Presentation Breech Breech Cephalic Cephalic ADE(cm) 7.7 2.05 4.1 2.32 MVP(cm) 2.05 1.57 CL(cm) 4.48 4.43 3.5 cm 3.66 EFW(gm) 2154 AC(cm) 29.59 S:D 2.42 2.52 MCA Placenta Posterior Waist circumference(cm) Waist size 4-6 Shoe size 6 Farideh Bourne MD Family history of open neural tube defect 04/22/2013 04/22/2013 Encounters Date Type Department Care Team Description 03/28/2025 2:28 PM CDT - 03/28/2025 11:59 PM CDT Hospital Encounter [facility] [address] [place] [address] Kriss Sellers MD Discharge Disposition: Home or Self Care 03/28/2025 1:45 PM CDT - 03/28/2025 2:27 PM CDT Hospital Encounter [facility] [address] [place] [address] Kriss Sellers MD Discharge Disposition: Home or Self Care 03/14/2025 12:45 PM CDT - 03/14/2025 11:59 PM CDT Hospital Encounter [facility] [place] [address] [place] [address] Katerin Lassiter MD Discharge Disposition: Home or Self Care 03/10/2025 Telephone [facility] [address] [address] Monica Romero, detail maker and fitter 03/08/[address] [address] Monica Romero, detail maker and fitter 03/07/2025 10:30 AM CDT - 03/07/2025 11:59 PM CDT Hospital Encounter [facility] [address] [place] [address] Loreta Garcia MD Discharge Disposition: Home or Self Care 02/08/2025 8:32 AM CDT - 02/08/2025 11:59 PM CDT Hospital Encounter [facility] [address] [place] [address] Fabio Singh DO Discharge Disposition: Home or Self Care 02/08/2025 8:15 AM CDT - 02/08/2025 8:31 AM CDT Hospital Encounter [facility] [address] [place] [address] Fabio Singh DO FINANCIAL SUPERVISOR Discharge Disposition: Home or Self Care from Last 3 Months Immunizations Immunization Administration Dates Next Due INFLUENZA VACCINE 06/12/2013 TDAP (7yrs+) 06/26/2013 Social History Tobacco Use Types Packs/Day Years Used Date Smoking Tobacco: Former Cigarettes Smokeless Tobacco: Never Alcohol Use Standard Drinks/Week Comments No 0 (1 standard drink = 0.6 oz pur e alcohol) Hunger Vital Sign Answer Date Recorded Within the past 12 months, y ou worried that your food would run out before you got the money to buy more. Never true 03/14/20 25 Within the past 12 months, t he food you bought just didn't last and you didn't have money to get more. Never true 03/14/2025 Brighton Depression Scale Answer Date Recorded Brighton Depression Scale Total 0 03/14/2025 The thought of harming myself has occurred to me . Never 03/14/2025 Estimated Date of Delivery Comme nts Yes 04/16/2025 Based on last me nstrual period of 07/10/2024 Sex and Gender Information Value Date Recorded Sex Assigned at Not on file Legal Sex Female 10:30 AM CDT Gender Identity Not on file Sexual Orientation Not on file Last Filed Vital Signs Vital Sign Reading Time Taken Comments Blood Pressure 105/67 03/28/2025 3:23 PM CDT Pulse 96 03/28/2025 3:23 PM CDT Temperature 36.8 C (98.2 F) 06/26/2013 4:30 PM CDT Respiratory Rate 16 06/26/2013 4:30 PM CDT Oxygen Saturation 100% 06/23/2013 3:10 PM CDT Inhaled Oxygen Concentration - - Weight 92 kg (202 lb 13.2 oz) 03/14/2025 1:21 PM CDT Height 157.5 cm (5' 2) 02/08/2025 9:01 AM CDT Body Mass Index 37.1 02/08/2025 9:01 AM CDT Plan of Treatment Health Maintenance Due Date Last Done Comments HEPATITIS C SCREENING 05/04/2013 HEPATITIS B VACCINE (1 of 3 - 19+ 3-dose series) 2014 PAP SMEAR 2016 HPV VACCINE (1 - 3-dose SCDM series) 2022 DTAP/TDAP/TD VACCINES (2 - T d or Tdap) 06/26/2023 06/26/2013 COVID-19 VACCINE (1 - 2023-2 5 season) 2024 OB-TDAP CURRENT 01/15/2025 06/26/2013 INFLUENZA VACCINE (#1) 2025 , 06/12/2013 ZOSTER VACCINE (1 of 2) 2045 HIV SCREENING Completed 01/26/2025 OB-ONE HOUR GLUCOSE Completed 01/26/2025 DEPRESSION SCREENING Completed 03/14/2025 OB-GROUP B STREP SCREEN Completed 03/16/20, 06/11/2013 HIB VACCINE Aged Out No longer eligi [...] Procedure Name Priority Date/Time Associated Diagnosis Comments SONOGRAM - COMPLETE Routine 03/28/2025 2 :02 PM CDT [facility]: abnormality in (HCC) - UTD Encounter for ultrasound to assess growth (HCC) 37 weeks gestation of ([facility]) Polyhydramnios in third trimester complication, single or unspecified fetus (HCC) History of delivery, currently in third trimester ([facility]) Supervision of high risk in third trimester ([facility]) NON-STRESS TEST Routine 03/14/2025 2:48 PM CDT SONOGRAM - COMPLETE Routine 03/14/2025 1 :15 PM CDT abnormality affecting management of mother, single or unspecified fetus (HCC) SONOGRAM - COMPLETE Routine 03/07/2025 1 0:44 AM CDT Polyhydramnios in third trimester complication, single or unspecified fetus (HCC) History of delivery, currently in third trimester ([facility]) Supervision of high risk in third trimester ([facility]) Encounter for ultrasound to assess growth (HCC) 34 weeks gestation of ([facility]) SONOGRAM - COMPLETE Routine 02/08/2025 8 :25 AM CDT Encounter for anatomic survey ([facility]) Encounter for ultrasound to assess growth (HCC) Polyhydramnios in third trimester complication, single or unspecified fetus (HCC) History of delivery, currently in third trimester ([facility]) Supervision of high risk in third trimester ([facility]) CULTURE STREP B STAT 06/11/2013 4:29 AM CDT from Last 3 Months or Most Recently Relevant to Health Maintenance Results * Sonogram - Complete (03/28/2025 2:02 PM CDT) Only the most recent of4 resultswithin the time period is included. Linked Results Indication ======== Polyhydramnios Encounter for other screening follow-up genitourinary anomaly UTD A2,3 History ====== OB History 4. Para 3 [id number] 1. live 2012. Gest. age 35 w + 0 d. Weight 2,296 g. Sex of child: male. Details: Vaginal delivery Had PPROM at 33 weeks 2. miscarriage 2018 3. live 2020. Gest. age 39 w + 1 d. Weight 3,827 g. Sex of child: male. Details: Vaginal delivery 4. live 2022. Gest. age 37 w + 6 d. Weight 3,090 g. Sex of child: male. Details: Vaginal delivery Lab Tests Test Date Result NIPT Low risk, Male Maternal Assessment Physical Exam Height 157 cm, 5 ft 2 in. Weight 93 kg, 205 lb. Initial weight 80 kg, 177 lb. BMI 37.50 kg/m . Initial BMI 32.37 kg/m . Weight gain 13 kg, 28 lb Method ====== Transabdominal ultrasound examination, Transabdominal ultrasound. View: Suboptimal view: limited by late gestational age ========= [place] . Number of fetuses: 1 Dating ====== Date Details Gest. age LUDMILA LMP 07/10/2024 37 w + 2 d 04/16/2025 Stated LUDMILA 37 w + 2 d 04/16/2025 U/S 03/28/2025 based upon AC, BPD, Femur, HC 38 w + 5 d 04/06/2025 Assigned dating based on the LMP, selected on 02/08/2025 37 w + 2 d 04/16/2025 General Evaluation Cardiac activity present. FHR 145 bpm. Presentation: cephalic Placenta: Placental site: anterior Amniotic fluid: Amount of AF: increased, polyhydramnios. MVP 10.3 cm. ADE 34.7 cm. Q1 10.3 cm, Q2 8.0 cm, Q3 8.6 cm, Q4 7.8 cm Biometry BPD 95.5 mm 39w 0d 95% Hadlock HC 347.7 mm 40w 2d 90% Hadlock AC 358.0 mm 39w 5d 99% Hadlock Femur 70.2 mm 36w 0d 19% Hadlock Humerus 60.0 mm 34w 6d 17% Bakari HC / AC 0.97 Weight Calculation: EFW 3,631 g 91% Hadlock EFW (lb,oz) 8 lb 0 oz EFW by Hadlock ([id number]) LGA Growth Overview Exam date GA BPD (mm) HC (mm) AC (mm) FL (mm) HL (mm) EFW (g) 02/08/2025 30w 3d 81.6 95% 298.5 85% 282 90% 57.4 26% 51.3 41% 1822 80% 03/07/2025 34w 2d 91 97% 336.6 97% 322.1 94% 67 46% 57.1 31% 2833 89% 03/28/2025 37w 2d 95.5 95% 347.7 90% 358 99% 70.2 19% 60 17% 3631 91% Anatomy The following structures appear abnormal: Abdomen Kidneys: Lt renal pelvis measures 1.4 cm. The following structures appear normal: Heart / Thorax 7-ppagjy-fgnybvi view. Interventricular septum. Abdomen Stomach. Bladder. The following structures could not be adequately visualized: Heart / Thorax LVOT view. 3-vessel view. The following structures were documented previously: Head / Neck Cranium. Lateral ventricles. Choroid plexus. Midline falx. Cavum septi pellucidi. Cerebellum. Cisterna magna. Thalami. Nuchal fold. Face Lips. Profile. Nose. Nasal bone. Orbits. Heart / Thorax 4-chamber view. RVOT view. Situs. Aortic arch view. Bicaval view. Ductal arch view. Great vessels. Right lung. Left lung. Diaphragm. Abdomen Cord insertion. Bowel. Genitals. Spine Cervical spine. Thoracic spine. Lumbar spine. Sacral spine. Extremities / Skeleton Arms. Hands. Legs. Feet. sex: male. Biophysical Profile 2: breathing movements 2: Gross body movements 2: tone 2: Amniotic fluid volume NST: reactive 10/10 Biophysical profile score Non Stress Test NST interpretation: reactive. Baseline FHR 135 bpm. Baseline variability: moderate. Accelerations: present Impression ========= Single, live, intrauterine at 37w 2d The growth is LGA. The amniotic fluid volume is increased, polyhydramnios. The biophysical profile is 10/10. Fluid in the left kidney measures 1.4 cm. Comment ======== ultrasound alone cannot detect all structural, genetic, or functional , placental, or maternal abnormalities, ultrasound alone cannot detect all structural, genetic, or functional , placental, or maternal abnormalities Follow-up ======== Continue weekly testing (BPPs with NSTs) as planned. Coding ====== Diagnoses O40.3XX0: Polyhydramnios O35.EXX0: Maternal care for other (suspected) abnormality and damage, genitourinary anomalies Procedures 57753: [place] [address]: Biophysical Profile W NST J. Hilburn PACS Anatomical Region Laterality Modality Other 03/28/2025 2:02 PM CDT [facility] Asher Wray MD [facility] ORDERABLES Edited Result - Final * Non-Stress Test (03/14/2025 2:48 PM CDT) Anatomical Region Laterality Modality Other Narrative 03/14/2025 2:48 PM CDT Katerin Lassiter MD 03/15/2025 7:40 AM Name: Mckenzie Stallings Date of : 1995 Today's Date: 03/14/2025 35w2d NST RESULTS ([facility]) OBJECTIVE FINDINGS , Pulse: (!) 112, , BP: 115/75 NST Indication(s): Other (Comment) (Polyhydramnios, Obesity, UTD) Uterine Irritability: No Contractions: Not present OBJECTIVE FINDINGS Movement: Present Monitoring Mode: External Baseline: (unable to obtain baseline due to activity x20 minutes) OTHER INFORMATION Linda Montemayor, RAQUEL Katerin Lassiter MD [facility] ORDERABLES Edited Resul t - Final * CULTURE STREP B (06/11/2013 4:29 AM CDT) Culture Negative for Beta Hemolytic Streptococcus Group B 06/14/2013 12:36 PM CDT [facility] Microbiology PART OF UTERINE CERVIX / Unknown 06/11/2013 4:29 AM CDT 06/11/2013 4:47 AM CDT Asher Allred MD LAB - MICROBIOLOGY ORDERABLE S Final Result Performing Organization Address City/State/[facility] Co de Phone Number [facility] [address] [place] [address], [facility] from Last 3 Months or Most Recently Relevant to Health Maintenance Insurance [facility] OPT[employer] PPO Advance Directives * FULL RESUSCITATION (Latest Code Status on File) Date Activated Date Inactivated Comments 06/23/2013 7:29 PM 06/26/2013 9:25 PM * FULL RESUSCITATION Date Activated Date Inactivated Comments 06/11/2013 4:04 AM 06/23/2013 7:29 PM
--- OUTSIDE RECORDS SUMMARY | 2025-04-11 06:01 | XMS_ITS | Clinical Summary ---
Author Organization [facility] Address [facility] [place] [address] Care Team Providers Care Ssn/Ssbn Assistant Navigator Name Role Phone Unavailable Primary Care Provider Unavailabl e Social History Tobacco Use Types Packs/Day Years Used Date Smoking Tobacco: Never Assessed Comments Unknown Sex and Gender Information Value Date Recorded Sex Assigned at Not on file Legal Sex Female 2:06 PM CDT Gender Identity Not on file Sexual Orientation Not on file Plan of Treatment Health Maintenance Due Date Last Done Comments Cervical Cancer Screening Pa p Smear (Age 21 to 29) Every 3 Years 1995 Cervical Cancer Screening 1995 Annual Physical 1998 Hepatitis C 2013 Hepatitis B Vaccines (1 of 3 - 19+ 3-dose series) 2014 HPV Vaccines (1 - 3-dose SCD M series) 2022 DTaP, Tdap and Td Vaccines ( 2 - Td or Tdap) 06/26/2023 06/26/2013 COVID-19 Vaccine ( - 2023-2 5 season) 2024 Meningococcal B Vaccine Aged Out No l onger eligible based on patient's age to complete this topic Meningococcal Vaccine Aged Out No luis enrique giana eligible based on patient's age to complete this topic Pneumococcal Vaccine: Pediat rics (0 to 5 Years) and At-Risk Patients (6 to 49 Years) Aged Out No longer eligi ble based on patient's age to complete this topic RSV Immunizations Under 20 Months Aged Out No longer eligible based on patient's age to complete this topic
--- NOTE | 2025-04-11 06:37 | LDADM ---
This patient, Mckenzie Stallings, was admitted to Labor/Delivery/Recovery 107 on 04/11/25 at 05:57. Plans for labor, pain management and were discussed with patient. Patient/family oriented to hospital policies and general routines including ID bracelet, bed and alarms, visiting hours, pain management, procedures, bathroom and other care routines, personal items, smoking policy, room service/diet and guest tray routines, infant security routines, and visiting hours. Patient/Family are encouraged to report perceived risks to care and to ask questions if they do not understand what they are told or what they should do. See OBIX for further documentation.
--- NOTE | 2025-04-11 06:43 | P.PNAN_ITS ---
Anes - Eval Pre Procedure Procedure: Labor epidural Date/Time: 04/11/25 06:43 Surgeon: frankie Preop Diagnosis: pain during labor Pre Op Diagnosis: IOL Patient Data Age: 29 Gender: F Height: Weight: Allergies Allergy/AdvReac Type Severity Reaction Status Date / Time Penicillins Allergy Severe HIVES Verified 03/01/25 12:42 Home Medications ?Medication ?Instructions ?Recorded ?Confirmed ?Type ferrous sulfate 325 mg (65 mg 325 mg PO BID 11/29/22 03/01/25 History iron) tablet docusate sodium 100 mg capsule 100 mg PO DAILY 12/11/22 03/01/25 History (Colace) pantoprazole 40 mg tablet,delayed 40 mg PO DAILY 03/01/25 03/01/25 History release vit no.95-ferrous 1 tablet PO DAILY 03/01/25 03/01/25 History fumarate 28 mg-folic acid 800 mcg tablet () Patient hx anesthesia problems: none Family hx anesthesia problems: none Results Review: All pre-operative results and documents have been reviewed as part of the pre- operative evaluation. COUNT INCLUDES THE [facility] Past Medical History Medical History Pain during labor Family History Family History Mother Family history of malignant neoplasm of breast in first degree relative Other No pertinent family history Social History Social History Smoking status: Never smoker Second hand tobacco smoke exposure: No Alcohol intake: never Substance use: never Substance use type: does not use Do You Feel Safe in your Home?: Yes Lack of Transportation: No Lack of Food: Never True Current Housing: I Have Housing Concerned About Future Housing: No Difficulty Paying Gas/Electric Bills: No Difficulty Paying for Meds: No Currently Unemployed: No Education: High School Diploma/GED Difficulty w/ Childcare or Family Care: No Living arrangements: with family Occupation/Education: occupation Gender identity (if verbalized by the patient): Female Spiritual care concerns: No Exam Day of Procedure 04/11/25 06:43
[2025-04-11 07:22] LABS: Hematocrit 33.6 % (37.0-47.0); Hemoglobin 10.4 g/dL (12.0-15.0); Immature Granulocyte Percent A 0.5 % (0-0.5); Lymphocytes Absolute Auto 1.87 K/mm3 (0.9-3.2); Mean Corpuscular HGB Conc 31.0 g/dl (32-36); Mean Corpuscular Hemoglobin 25.6 pg (26-34); Mean Corpuscular Volume 82.8 fl (80-100); Nucleated Red Blood Cells Absolute Auto 0.000 K/mm3 (0.0-0.012); Nucleated Red Blood Cells Perc 0.0 % (0.0-0.2); Platelet Count Result 138 k/mm3 (150-375); Red Blood Count 4.06 M/mm3 (4.2-5.4); White Blood Count 6.4 K/mm3 (4.5-10.0)
[2025-04-11 08:36] LABS: Syphilis IgG/IgM Antibody Non-Reactive (Nonreactive)
--- NOTE | 2025-04-11 09:10 | WPDOBADMIT ---
Obstetrics - Admit Note Admission Note: record reviewed. No pertinent additions to the history and/or any subsequent changes in the physical findings that are not consistent with the expected course of the were found. Additions to the history and/or subsequent changes in the physical findings follow. IOL, Polyhydramnios, SVE /-2 soft, anticipate vaginal delivery
[2025-04-11] MEDS: LACTATED RINGERS 1,000 ML 125 ML IV CONT (09:17)
[2025-04-11] MEDS: OXYTOCIN 30 UNITS/NS 500 ML 30 UNITS/500 ML BAG IV CONT (12:00)
[2025-04-11] MEDS: OXYTOCIN 30 UNITS/NS 500 ML 30 UNITS/500 ML BAG 999 UNITS IV CONT (14:43)
--- NOTE | 2025-04-11 14:53 | PM.OBPRVD ---
OB - Vaginal Delivery Note Procedure Delivery date: 04/11/25 Events: Polyhydramnios Induction method: AROM, Per Misoprostol Protocol and Per Pitocin Protocol Delivery monitor: External FHT and Internal Uterine Route of delivery: Episiotomy description: None Laceration Description: None Specimen: No Quantitative Blood Loss (ml): 100 Anesthesia type: Epidural Disposition: Floor Complications: No immediate complications Baby Date of : 04/11/25 Time of : 14:41 Gestational Age by Date: 39 gender: Male presentation: vertex position: Left Occiput Anterior Placenta delivery description: Expressed Cord Vessel Description: Nuchal Cord (x1), Loose and Delayed Cord Clamping score one minute: 9 score five minutes: 9
[2025-04-11] MEDS: OXYTOCIN 30 UNITS/NS 500 ML 30 UNITS/500 ML BAG 125 UNITS IV CONT (15:20)
--- NOTE | 2025-04-11 17:00 | OBPPTRN ---
Patient transferred to post room #281 via wheelchair. Support person present. Oriented to unit, room, information board, rooming in, admission packet and security measures. Patient verbalizes understanding.
[2025-04-11] MEDS: IBUPROFEN 600 MG TABLET PO (19:24)
[2025-04-11] MEDS: ACETAMINOPHEN 325 MG TABLET 650 MG PO (22:16)
[2025-04-12] MEDS: IBUPROFEN 600 MG TABLET PO ×2 (04:09→22:33)
[2025-04-12 04:10] VITALS: BP 121/78; PULSE 69; RESP 18; TEMP 36.9; O2SAT 99
[2025-04-12 06:05] LABS: Hematocrit 33.5 % (37.0-47.0); Hemoglobin 10.3 g/dL (12.0-15.0)
[2025-04-12 07:20] VITALS: BP 108/70; PULSE 70; RESP 16; TEMP 37.1; O2SAT 97
[2025-04-12] MEDS: ACETAMINOPHEN 325 MG TABLET 650 MG PO (08:37)
[2025-04-12] MEDS: MULTIVIT/MIN/PREN/FOL AC/IRON TABLET 1 TAB PO (08:38)
--- NOTE | 2025-04-12 10:35 | PC.NURSE ---
Introductions were made, then consulted with patient to assess needs related to . Discussed with mother her?plans to feed?her and the?experience so far. 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 Resources provided for inpatient and outpatient services with the feeding sheet, mom/baby guide and name written on the communication board. Mother voiced understanding of information and will call if there is a request for assistance. Reported to the Primary RN.
--- NOTE | 2025-04-12 12:20 | WPDANLDPN2 ---
Anes-Prog Note L&D Date/Time: 04/12/25 12:20 Comfortable throughout: labor and delivery Neuraxial method: epidural Epidural/Spinal procedure site: clean & non-tender Neuro status: Neuro function grossly intact. Cardiovascular status: normal Respiratory status: normal Airway patency: baseline Mental status: baseline Post-Op hydration status: normal Vital Signs: Last Vital Signs Temp 37.1 C 04/12/25 07:20 Pulse 70 04/12/25 07:20 Resp 16 04/12/25 07:20 BP 108/70 04/12/25 07:20 Pulse Ox 97 04/12/25 07:20 O2 Del Method Room Air 04/11/25 17:10 Pain score (VAS): 1 I/O: Intake & Output 04/11/25 04/12/25 04/12/25 23:59 07:59 15:59 Intake Total 1 Balance 1 Post-procedural complaints: none Patient feedback: Patient satisfied with anesthetic care.
[2025-04-12 12:29] VITALS: BP 111/63; PULSE 75; RESP 16; TEMP 36.8; O2SAT 97
[2025-04-12 16:12] VITALS: BP 135/65; PULSE 80; RESP 16; TEMP 36.8; O2SAT 98
[2025-04-12 19:56] VITALS: BP 116/69; PULSE 80; RESP 14; TEMP 36.3; O2SAT 97
--- NOTE | 2025-04-13 00:21 | P.PNOB_ITS ---
OB - PN: Subj Subjective Date/time seen: 04/12/25 08:21 Interval history: PPD#1 Doing well, pain controlled Voiding without issue Tolerating general diet Baby doing well, cleared by peds for circ; awaiting labs on DOL2 OB - PN: Obj Data Labs 04/12/25 04:06 Labs: Laboratory Results - last 24 hr 04/12/25 04:06 Hgb 10.3 L Hct 33.5 L OB - PN A/P Assessment and Plan (1) Vaginal delivery: Code(s): O80 - Encounter for full-term uncomplicated delivery Status: Acute Plan day: 1 Plan: routine care Time Spent With Patient Time: Total time spent is greater than 50% in coordination of care (as documented) at patient's floor/unit and/or counseling patient: Review of Systems 2 Review of Systems: All systems reviewed & are unremarkable except as noted in HPI and below Exam 2 Const: General: comfortable and no acute distress O rientation/consciousness: patient oriented x3 Resp: Effort & Inspection: normal respiratory effort
--- NOTE | 2025-04-13 07:57 | P.PNOB_ITS ---
OB - PN: Subj Subjective Date/time seen: 04/13/25 07:57 Interval history: PPD#2 Doing well, pain controlled Voiding without issue Tolerating general diet OB - PN: Obj Data Labs 04/12/25 04:06 OB - PN A/P Plan day: 2 Plan: routine care and discharge home Time Spent With Patient Time: Total time spent is greater than 50% in coordination of care (as documented) at patient's floor/unit and/or counseling patient: Review of Systems 2 Review of Systems: All systems reviewed & are unremarkable except as noted in HPI and below Exam 2 Const: General: cooperative, healthy appearing and comfortable Chest: Chest palpation & inspection: normal inspection of the chest Resp: Effort & Inspection: normal respiratory effort Skin: General skin exam: normal color
--- NOTE | 2025-04-13 07:59 | PM.OBDSVD ---
DS: Admitting Diagnosis Discharge Date 04/13/25 Admitting Diagnosis IOL DS: Discharge Diagnosis Discharge Diagnosis (1) (normal spontaneous vaginal delivery): Code(s): O80 - Encounter for full-term uncomplicated delivery Status: Acute OB - DS: Summary OB Procedures : None OB Procedures Intrapartum: Spontaneous Vag Delivery OB Procedures: : None Peripartum Data Laceration Description: None Episiotomy description: None Time Spent with Patient Time attestation: Total time spent providing and/or coordinating discharge services: Discharge Plan Discharge Attending physician on discharge: Rogerio Wray Discharging Clinician: Torri Turner Patient Disposition: Home Activity: pelvic rest Diet: regular Patient Instructions: Antibiotic Form Patient Language: Swedish Stand Alone Forms: General Discharge Information Follow-up/Referrals: Torri Turner CNM [Certified Nurse [employer]] - 4 Weeks Discharge Medications: Continued ferrous sulfate 325 mg (65 mg iron) Tablet 325 mg PO BID docusate sodium [Colace] 100 mg Capsule 100 mg PO DAILY pantoprazole 40 mg tablet,delayed release (DR/EC) 40 mg PO DAILY PNV no.95-ferrous fumarate-FA [] 28 mg iron- 800 mcg tablet 1 tablet PO DAILY Date of admission: 04/11/25 05:57 Primary Care Provider: Finesse Reyes Admitting Provider: Rogerio Wray Attending physician on admission: Rogerio Wray Condition: Stable
[2025-04-13] MEDS: DOCUSATE SODIUM 100 MG CAPSULE PO (08:40)
[2025-04-13] MEDS: MULTIVIT/MIN/PREN/FOL AC/IRON TABLET 1 TAB PO (08:40)
[2025-04-13 09:10] VITALS: BP 123/76; PULSE 74; RESP 18; TEMP 36.9; O2SAT 98
--- NOTE | 2025-04-13 18:02 | PC.NURSE ---
1240. Mother verbalizes she is able to independently latch infant with appropriate positioning and alignment. She denies any nipple discomfort and is responsively . is currently meeting outcomes for weight, output, jaundice, blood sugar and feeding frequencies of 8-12 times in 24 hours. Mother declines any additional assistance or education at this time. Mother is encouraged to call for assistance if her doesn?t latch, pain with latching, questions or concerns. Mother voiced understanding of information shared along with the mom/baby guide for an additional resource. Reported to the Primary RN.
[2025-04-15 11:16] VITALS: BP 117/69; PULSE 96; RESP 16; TEMP 36.7; O2SAT 98
== END 2025-04-13 16:46 | disposition home or self-care (01) | DRG 807 ==
LOC: ANHLDR 05:59 → ANHOB2 17:09
PROVIDERS: Advanced Practice Midwife; Admitting Provider Obstetrics & Gynecology; PCP Family Medicine; Visit Provider Obstetrics & Gynecology
DX: O40.3XX0 Polyhydramnios, third trimester, not applicable or unspecified (principal); Z37.0 Single live birth; Z3A.40 40 weeks gestation of pregnancy; O69.81X0 Labor and delivery complicated by cord around neck, without compression, not applicable or unspecified
CPT/HCPCS: 36415; 85014; 85018; 85025; 86593; 86850; 86900; 86901; A9270; J2590; J2795; J7120